=== PATIENT | female | born 1955 | race Caucasian/White ===

== ENCOUNTER → 2016-10-18 | Outpatient (CLI) | payer OTHER | LOC: MMPC 09:00 | DX: F31.31 Bipolar disorder, current episode depressed, mild (principal); J44.9 Chronic obstructive pulmonary disease, unspecified; E66.9 Obesity, unspecified; Z87.39 Personal history of other diseases of the musculoskeletal system and connective tissue; E11.9 Type 2 diabetes mellitus without complications; K58.9 Irritable bowel syndrome, unspecified | CPT/HCPCS: 99214; G0463 ==

== ENCOUNTER 2016-10-31 17:55 | Emergency (ER) | payer OTHER ==
[2016-10-31 19:06] VITALS: RESP 19; TEMP 96.7
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
== END 2016-10-31 20:16 | disposition home or self-care (01) ==
LOC: ER 17:55
DX: S29.012A Strain of muscle and tendon of back wall of thorax, initial encounter (principal); V43.62XA Car passenger injured in collision with other type car in traffic accident, initial encounter
CPT/HCPCS: 71250; 99282

== ENCOUNTER 2016-11-01 10:00 | Emergency (ER) | payer OTHER ==
[2016-11-01] MEDS ORDERED: NORMAL SALINE 10 ML SYRINGE FLUSH IVP PRN (11:05)
[2016-11-01] MEDS ORDERED: KETOROLAC 15 MG/1 ML VIAL IVP ONE (11:05)
[2016-11-01 11:17] VITALS: RESP 18; TEMP 97.4
[2016-11-01 11:22] LABS: BILIRUBIN,URINE NEGATIVE (NEG); CLARITY,URINE CLEAR (CLEAR); GLUCOSE, URINE (UA) NEGATIVE (NEG); LEUKOCYTE ESTERASE ,URINE NEGATIVE (NEG); NITRATE,URINE NEGATIVE (NEG); OCCULT BLOOD,URINE NEGATIVE (NEG); PROTEIN,URINE NEGATIVE (NEG); UROBILINOGEN,URINE 0.2 EU/dL (0.2)
[2016-11-01 11:27] LABS: URINE SAMPLE TYPE VOIDED SPECIMEN
[2016-11-01 11:31] LABS: BASOPHILS # (AUTO) 0.06 10*3/UL; BASOPHILS % (AUTO) 0.7 % (0-1); EOSINOPHILS % (AUTO) 1.9 % (0-8); HEMOGLOBIN 15.1 g/dL (12.0-16.0); IMM GRAN % (AUTO) 0.1 % (0-5); IMM GRAN# (AUTO) 0.01 10*3/UL; LYMPHOCYTES # (AUTO) 2.98 10*3/uL; MEAN CORPUSCULAR HEMOGLOBIN 29.9 PG (27-31); MEAN CORPUSCULAR HGB CONC 33.6 g/dL (33-37); MEAN PLATELET VOLUME 9.1 FL (7.4-12.2); MONOCYTES # (AUTO) 0.61 10*3/UL (0.3-0.8); MONOCYTES % (AUTO) 7.2 % (5-15); NEUTROPHILS % (AUTO) 55.1 % (50-80); RDW COEFFICIENT OF VARIATION 15.3 % (11.5-14.5); RED BLOOD COUNT 5.05 10^6/uL (4.20-5.40); WHITE BLOOD COUNT 8.52 10^3/uL (4.8-10.8)
[2016-11-01] MEDS ORDERED: Sodium Chloride 0.9% 1,000 ML PRIMARY IV ONE (11:31)
[2016-11-01 11:35] LABS: PLATELET MORPHOLOGY COMMENT NORMAL MORPHOLOGY (NORM)
[2016-11-01 11:51] LABS: ASPARTATE AMINO TRANSFERASE 29 IU/L (8-39); BILIRUBIN,TOTAL 0.6 mg/dL (0.3-1.2); BLOOD UREA NITROGEN 12 mg/dL (7-22); C-REACTIVE PROTEIN 1.1 mg/dL (0.0-0.9); CALCIUM 9.6 mg/dL (8.7-10.7); CHLORIDE 106 meq/L (98-112); CREATININE 0.6 mg/dL (0.50-1.20); EST GLOMERULAR FILTRATION > 60 (>60 ml/min/1.73m(2)); GLUCOSE 93 mg/dL (78-110); POTASSIUM 4.1 meq/L (3.8-5.2); SODIUM 141 meq/L (135-145); TOTAL PROTEIN 7.8 g/dL (6.1-8.0)
[2016-11-01] MEDS ORDERED: fentaNYL Inj 100 MCG/2 ML VIAL IVP ONE (12:18)
--- NOTE | 2016-11-01 12:35 | DI ---
CT ABDOMEN SCAN WITHOUT IV CONTRAST, 11/01/2016 11:38 AM : Clinical History: Right flank pain that radiates to the right groin. Previous Exam: None at this facility. Scans are performed from the lower lung bases through the liver and kidneys without IV contrast. Sagi ttal and coronal reformatted images are generated. The lung bases are clear. The liver is normal. The gallbladder is grossly normal. There is no abnorma lity of the spleen, pancreas, and adrenal glands. Both kidneys are normal in size, shape, position an d contour. There is no hydronephrosis or hydroureter. No renal or ureteral calculi are present. There is a calcification located in the anterior aspect of the upper pole the right kidney, but this is in a vessel. There are no abnormal retrocrural or periaortic nodes. No ascites is present. READING: Normal CT abdomen scan. There is no hydronephrosis or hydroureter or evidence of renal or ureteral ca lculi. CT PELVIS SCAN WITHOUT IV CONTRAST, 11/01/2016 11:38 AM : Clinical History: See above. Previous Exam: None. Scans are performed from the inferior margin of the liver and kidneys to the symphysis pubis without IV contrast. There is no free fluid collection and there is no adenopathy. The appendix is diminutive in size and in a retrocecal position but is normal. The small bowel, terminal ileum, and ileocecal valve are norm al. The colon is also normal. There are no hernias. The patient is status post hysterectomy and bilat eral salpingo-oophorectomy. READING: Normal CT pelvis scan.
--- NOTE | 2016-11-01 13:05 | DI ---
RIGHT ANKLE, 11/01/2016 12:29 PM: Clinical History: Right apical pain with swelling. Previous Exam: None at this facility. 3 views are submitted. There is soft tissue swelling over the lateral malleolus. There is no fracture or dislocation. Reading: No fracture noted.
[2016-11-01] MEDS ORDERED: Prochlorperazine Edisylate Inj 10mg/2ml vial IVP ONE (13:25)
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
[2016-11-01] MEDS ORDERED: Sodium Chloride 0.9% 1,000 ML ONE (17:50)
== END 2016-11-01 13:35 | disposition home or self-care (01) ==
LOC: ER 10:00
DX: M54.5 Low back pain (principal); M25.571 Pain in right ankle and joints of right foot; K58.0 Irritable bowel syndrome with diarrhea; M54.89 Other dorsalgia; E11.9 Type 2 diabetes mellitus without complications
CPT/HCPCS: 73610; 74176; 80053; 81003; 84550; 85025; 86140; 96374; 96375; 99283 ×2; J2360; J3010; J1885; J7030

== ENCOUNTER → 2016-11-16 | Outpatient (CLI) | payer OTHER | LOC: MMPC 09:00 | DX: L84 Corns and callosities (principal); Z12.31 Encounter for screening mammogram for malignant neoplasm of breast; J44.9 Chronic obstructive pulmonary disease, unspecified; F31.31 Bipolar disorder, current episode depressed, mild; E11.9 Type 2 diabetes mellitus without complications | CPT/HCPCS: 99213; G0463 ==

== ENCOUNTER 2016-12-15 13:43 | Emergency (ER) | payer OTHER ==
[2016-12-15] MEDS ORDERED: DIAZEPAM 10 MG/2 ML (5 MG/1 ML) CARPUJECT IM ONE (14:04)
[2016-12-15 14:41] VITALS: RESP 20; TEMP 97.8
--- NOTE | 2016-12-15 15:00 | DI ---
PA /LATERAL CHEST X-RAY, 12/15/2016 2:04 PM : Clinical History: Cough. Right scapular chest wall pain. Previous Exam: 08/19/2016. Comparison is also made with a CT scan of the chest from 08/19/2016 and 07/2017. There is no acute soft tissue or bony abnormality. Heart size is normal. There is no acute infiltrate or effusion. The right hilum is prominent but no adenopathy is identified on the CT scans of the est from 10/31/2016. That study did demonstrate pulmonary arterial hypertension without obvious underl chica chronic lung disease. There are no pulmonary nodules. Readin. There is no acute infiltrate or effusion. 2. The right hilum is prominent but the recent CT scan of the chest from 10/31/2016 did not show kalyn opathy. This may be secondary to pulmonary arterial hypertension and in the absence of obvious underl chica chronic lung disease, the pulmonary hypertension may be secondary to chronic hypoxia.
--- NOTE | 2016-12-15 16:54 | DI ---
LUMBAR SPINE SERIES, 12/15/2016 2:20 PM: Clinical History: Low back pain. Previous Exam: None at this facility. Upright AP and lateral views are submitted. The vertebral bodies are of normal height and size. There is mild L3-4 and L5-S1 disc space narrowing and severe narrowing at L4-5 with normal disc spaces at L1-2 and L2-3. Arthritic changes are present in the apophyseal joints at all levels but most pronounc ed between L4-5 and L5-S1 bilaterally. The pedicles and remaining posterior elements are unremarkable . Both SI joints are normal. 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 Readin. Chronic disc space narrowing from L3-4 through L5-S1 with degenerative arthritic changes most pro nounced bilaterally between L4-5 and L5-S1. 2. 

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
== END 2016-12-15 15:11 | disposition home or self-care (01) ==
LOC: ER 13:43
DX: M54.5 Low back pain (principal); J44.9 Chronic obstructive pulmonary disease, unspecified; M25.511 Pain in right shoulder; E11.9 Type 2 diabetes mellitus without complications
CPT/HCPCS: 71020; 72100; 96372; 99283; J3360

== ENCOUNTER → 2016-12-22 | Outpatient (CLI) | payer OTHER | LOC: MMPC 11:11 | DX: M89.8X1 Other specified disorders of bone, shoulder (principal); E11.9 Type 2 diabetes mellitus without complications; F31.31 Bipolar disorder, current episode depressed, mild; R73.9 Hyperglycemia, unspecified; L84 Corns and callosities; J44.9 Chronic obstructive pulmonary disease, unspecified; Z87.39 Personal history of other diseases of the musculoskeletal system and connective tissue | CPT/HCPCS: 99213; G0463 ==

== ENCOUNTER → 2017-02-23 | Outpatient (CLI) | payer OTHER ==
[2017-02-23 16:04] LABS: HEMOGLOBIN A1C 5.82 % (4.2-6.0)
[2017-02-23 16:05] LABS: CHOL/HDL RATIO 4.6 RATIO (0-4.0)
[2017-02-23 16:22] LABS: VITAMIN D 25-HYDROXY 24.2 NG/ML (30-100)
== END ==
LOC: MOB LAB 13:24
DX: E11.65 Type 2 diabetes mellitus with hyperglycemia (principal); M25.511 Pain in right shoulder; E55.9 Vitamin D deficiency, unspecified; J44.9 Chronic obstructive pulmonary disease, unspecified; L84 Corns and callosities; E66.9 Obesity, unspecified; F31.9 Bipolar disorder, unspecified; F17.200 Nicotine dependence, unspecified, uncomplicated
CPT/HCPCS: 36415; 80061; 82306; 83036; 84443

== ENCOUNTER 2018-08-07 19:41 | Observation (INO) ==
[2018-08-07] MEDS ORDERED: LORazepam 2 MG/1 ML VIAL IVP ONE (19:47)
[2018-08-07] MEDS ORDERED: methylPREDNISolone 125 MG/2 ML VIAL IVP ONE (19:50)
[2018-08-07 20:00] LABS: BASOPHILS # (AUTO) 0.07 10*3/UL; BASOPHILS % (AUTO) 0.7 % (0-1); EOSINOPHILS # (AUTO) 0.12 10*3/UL; EOSINOPHILS % (AUTO) 1.3 % (0-8); Hematocrit [HCT] 56.3 % (37.0-47.0); Hemoglobin [HGB] 18.6 g/dL (12.0-16.0); LYMPHOCYTES # (AUTO) 1.64 10*3/uL; MEAN CORPUSCULAR HEMOGLOBIN 30.2 PG (27-31); MEAN CORPUSCULAR VOLUME 91.4 FL (81-99); MEAN PLATELET VOLUME 10.8 FL (7.4-12.2); MONOCYTES # (AUTO) 1.14 10*3/UL (0.3-0.8); NEUTROPHILS # (AUTO) 6.48 10*3/UL; NEUTROPHILS % (AUTO) 68.3 % (50-80); RED BLOOD COUNT 6.16 10^6/uL (4.20-5.40)
--- NOTE | 2018-08-07 20:06 | DI ---
AP CHEST X-RAY, 08/07/2018 7:47 PM : Clinical History: Dyspnea. Previous Exam: 07/12/2018. Soft Tissues: No acute soft tissue abnormality. Bones: Normal. Heart: There is cardiomegaly with CHF. Lungs: No infiltrate or effusion. Mediastinum: Pulmonary arterial hypertension. Nodules: No pulmonary nodules. Reading: Cardiomegaly with CHF.
[2018-08-07 20:23] LABS: VENOUS PH 7.34 (7.32-7.42)
[2018-08-07 20:40] LABS: BLOOD UREA NITROGEN 16 mg/dL (7-22); BUN/CREATININE RATIO 26.66 (6-20)
[2018-08-07 20:48] LABS: PLATELET MORPHOLOGY COMMENT NORMAL MORPHOLOGY (NORM); RBC MORPHOLOGY COMMENT NORMAL MORPHOLOGY (NORM); WBC MORPHOLOGY COMMENT NORMAL MORPHOLOGY (NORM)
[2018-08-07] MEDS ORDERED: FUROSEMIDE 10 MG/1 ML - 2 ML VIAL IVP ONE (21:14)
[2018-08-07] MEDS ORDERED: IPRATROPIUM/ALBUTEROL SULFATE 3 ML NEB NEB ONE ×2 (21:14→21:21)
[2018-08-07 21:48] LABS: BILIRUBIN,URINE NEGATIVE (NEG); CLARITY,URINE CLEAR (CLEAR); COLOR,URINE YELLOW (Y); GLUCOSE, URINE (UA) NEGATIVE (NEG); OCCULT BLOOD,URINE SMALL (NEG); PH,URINE 5.5 (5.0-8.5); PROTEIN,URINE >300 mg/dl (NEG); UROBILINOGEN,URINE 0.2 EU/dL (0.2)
[2018-08-07 21:53] LABS: SQUAMOUS EPITHELIAL CELL,UR FEW; URINE CASTS FEW; URINE SAMPLE TYPE CLEAN CATCH URINE; URINE SPECIFIC GRAVITY - MAN 1.017
[2018-08-07] MEDS ORDERED: Magnesium Sulfate 2gm (Premix) 2 GM/50 ML BAG IV ONE (21:53)
[2018-08-07] MEDS ORDERED: cefTRIAXone Inj 2 GM in Sodium Chloride 0.9% 100 ML IV ONE (22:24)
--- NOTE | 2018-08-07 23:18 | DI ---
EXAM: CT Angiography Chest Without And With Intravenous Contrast CLINICAL HISTORY: ITS.REASON hypoxia, elevated D-dimer Physician Notes: Tech Comments: TECHNIQUE: Axial computed tomographic angiography images of the chest without and with intravenous contrast using pulmonary embolism protocol. 3D reconstructed images were created and reviewed. COMPARISON: 07/12/18 FINDINGS: Pulmonary arteries: Unremarkable. No pulmonary embolism. Aorta: No acute findings. No thoracic aortic aneurysm. Lungs: Emphysema. No mass. Pleural space: Unremarkable. No significant effusion. No pneumothorax. Heart: Small pericardial effusion again seen. No evidence of RV dysfunction. Bones/joints: No acute fracture. No dislocation. Soft tissues: Unremarkable. Lymph nodes: Mediastinal and right hilar adenopathy again seen. IMPRESSION: No acute findings.
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
--- NOTE | 2018-08-07 23:59 | PDOC ---
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 In addition she has COPD, and diabetes mellitus type II. She comes in stating today that she's been short of breath. She is very elusive in terms of answering questions, and initially states "I wrote it all down on the parts". I told her that I really needed her to answer questions. She finally did cooperate. She states that she's been short of breath for days, weeks, months, and years. She states it's been worse over the last few days. She came into the emergency room and some sort of friend brought her in for evaluation. She really did not answer as to whether she was having fever or cough. In the emergency room, she got breathing treatments, Zithromax, and Solu-Medrol and she states that those medications helped her feel better. She denies chest pain. She states to me that she is DO NOT RESUSCITATE. Exa cerbating factors were very difficult to obtain due to her psychiatric condition and her unwillingness to answer all questions. Notably, the patient continues to smoke although she would not tell me how much. Past Medical History Medical History: 1. COPD , has been on oxygen. 2 L per nasal cannula at home. 2. Bipolar disorder. 3. Anxiety. 4. Hx of laryngeal dysfunction. 5. Tobacco abuse. 6. Diabetes mellitus type II Surgical History: 1. Exploratory laryngeal surgery few years back Family History: Reviewed an Not Pertinent Pertinent Family History: She denies any family history of lung problems Past Social History: Smokes daily. Did not tell me whether or not she drinks alcohol. She is on some sort of state program with bottle caser due to her psychiatric disorders. She states she has children and describes them as healthy. Tobacco Use: Current Every Day Smoker In the Past 12 Months, Have Used or Abuse Any of the Following Substance: None Alcohol Use: Other (The patient would not tell me) Medication / Allergies Home Medications: Home Medications Medication Instructions Recorded Confirmed Type Albuterol Sulfate [Ventolin Hfa] 1 - 2 puff INH Q4-6H PRN #1 puff 10/19/16 08/07/18 History Blood Sugar Diagnostic [Blood 1 strip MC QD #50 strip 10/20/16 08/07/18 Rx Glucose Test Strip] Blood-Glucose Meter [Blood Glucose 1 ea MC ONCE #1 ea 10/20/16 08/07/18 Rx Meter] dicyclomine 10 mg capsule 10 mg PO Q6H PRN #120 cap 10/19/17 08/07/18 Rx mirtazapine 30 mg disintegrating See Rx Instructions PO QDAY tab 03/30/18 08/07/18 History tablet fluticasone 200 mcg-vilanterol 25 1 inh INH QDAY PRN #28 ea 07/04/18 08/07/18 Rx mcg/dose powder for inhalation Gabapentin 100 mg PO DAILY 07/12/18 08/07/18 History aripiprazole 2 mg tablet 4 mg PO QDAY #60 tab 08/03/18 08/07/18 Rx hydrochlorothiazide 25 mg tablet 25 mg PO QDAY #60 tab 08/03/18 08/07/18 Rx Allergies/Adverse Reactions: Allergies Allergy/AdvReac Type Severity Reaction Status Date / Time codeine Allergy Anaphylaxis Verified 08/07/18 20:14 morphine Allergy HIVES Verified 08/07/18 20:14 Review of Systems - Review of Systems ROS Unobtainable: Due to Mental Status (Patient has bipolar disorder and pro bably underlying psychiatric disorder otherwise. (Schizophrenia?) She would not answer all questions. Her respiratory review systems is as per history of present illness. She denies chest pain. She denied nausea or vomiting. She complains of some low back pain and thoracic pain that came on fairly suddenly with this exacerbation.) Exam - Vitals Vital Signs: Vital Signs Pulse Rate 118 Respiratory Rate 22 Pulse Ox 95 Vital Signs - Last Taken Pulse Rate 118 H 08/07/18 21:19 Respiratory Rate 22 08/07/18 21:19 Pulse Ox 95 08/07/18 21:19 She is currently afebrile at bedside. - General General Appearance: No Acute Distress Additional General Exam Details: Somewhat uncooperative with history although she did let me examine her. - Head Head Exam: Normal Inspection, Normocephalic, Atraumatic - Eye Eye Exam: POSITIVE: No Scleral Icterus - ENT ENT Exam: POSITIVE: Mucous Membranes Dry - Neck Neck Exam: Normal Inspection - Respiratory Respiratory Exam: POSITIVE: Clear to Auscultation - Bilaterally, Breathing Non Labored, Normal to Percussion and Palpation Additional Respiratory Exam Details: She's had some breathing treatments in the emergency room so she could've been wheezing there. - Cardiovascular Cardiovascular Exam: POSITIVE: RRR, No Murmur, No Clicks, No Gallops, No Rubs, No JVD - GI/Abdominal GI/Abdominal Exam: POSITIVE: Normal Bowel Sounds, Non Tender, Non Distended, Soft - Rectal Rectal Exam: POSITIVE: Deferred - External Exam: POSITIVE: Deferred Exam: POSITIVE: Deferred - Extremities Extremities Exam: POSITIVE: No Edema Present, No Cyanosis Present, Clubbing Present Additional Extremities Exam Details: Palmar erythema noted - Back Back Exam: POSITIVE: No CVA Tenderness - Neurological Neurological Exam: POSITIVE: Alert, Oriented x 3, No Facial Droop, Speech Intact / Clear, Moves All Extremities Equally - Psychiatric Psychiatric Exam: POSITIVE: Anxious, Agitated Results - Labs CBC and BMP: 08/07/18 19:45 08/07/18 19:45 Additional Lab Results: Laboratory Results 08/07/18 08/07/18 08/07/18 19:45 19:45 19:45 WBC 9.49 RBC 6.16 H Hgb 18.6 H Hct 56.3 H MCV 91.4 MCH 30.2 MCHC 33.0 RDW Std Deviation 49.1 RDW Coeff of Pratik 14.9 H Plt Count 183 MPV 10.8 Immature Gran % (Auto) 0.4 Neut % (Auto) 68.3 Lymph % (Auto) 17.3 [place] % (Auto) 12.0 Eos % (Auto) 1.3 Baso % (Auto) 0.7 Immature Gran # (Auto) 0.04 Neut # (Auto) 6.48 Lymph # (Auto) 1.64 [place] # (Auto) 1.14 H Eos # (Auto) 0.12 Baso # (Auto) 0.07 WBC Morphology Comment Normal morphology Plt Morphology Comment Normal morphology RBC Morph Comment Normal morphology D-Dimer VBG pH VBG pCO2 VBG HCO3 VBG Base Excess Sodium Potassium Chloride Carbon Dioxide Anion Gap BUN Creatinine Estimated GFR BUN/Creatinine Ratio Glucose Calculated Osmolality Calcium Magnesium 1.5 L Total Bilirubin AST ALT Alkaline Phosphatase Troponin I 0.032 C-Reactive Protein 4.2 H NT-Pro-B Natriuret Pep 4310 H Total Protein Albumin Globulin Albumin/Globulin Ratio Ur Collection Type Urine Color Urine Clarity Urine pH Ur Specific [place] U Specif Grav (Refrac) Urine Protein Urine Glucose (UA) Urine Ketones Urine Occult Blood Urine Nitrate Urine Bilirubin Urine Urobilinogen Ur Leukocyte Esterase Urine RBC Urine WBC Ur Squamous Epith Cells Ur Renal Epithelial Cell Urine Crystals Urine Bacteria Urine Casts Urine Mucus Urine Trichomonas Urine Yeast Ur Culture Indicated? Serum Alcohol < 10 08/07/18 08/07/18 08/07/18 19:45 19:45 20:12 WBC RBC Hgb Hct MCV MCH MCHC RDW Std Deviation RDW Coeff of Pratik Plt Count MPV Immature Gran % (Auto) Neut % (Auto) Lymph % (Auto) [place] % (Auto) Eos % (Auto) Baso % (Auto) Immature Gran # (Auto) Neut # (Auto) Lymph # (Auto) [place] # (Auto) Eos # (Auto) Baso # (Auto) WBC Morphology Comment Plt Morphology Comment RBC Morph Comment D-Dimer 1.00 H VBG pH 7.34 VBG pCO2 58 H VBG HCO3 32 H VBG Base Excess 6 H Sodium 140 Potassium 4.3 Chloride 102 Carbon Dioxide 31 Anion Gap 7 BUN 16 Creatinine 0.6 Estimated GFR > 60 BUN/Creatinine Ratio 26.66 H Glucose 135 H Calculated Osmolality 292.0 Calcium 9.3 Magnesium Total Bilirubin 1.0 AST 59 H ALT 14 Alkaline Phosphatase 115 Troponin I C-Reactive Protein NT-Pro-B Natriuret Pep Total Protein 7.0 Albumin 4.0 Globulin 2.9 Albumin/Globulin Ratio 1.30 Ur Collection Type Urine Color Urine Clarity Urine pH Ur Specific [place] U Specif Grav (Refrac) Urine Protein Urine Glucose (UA) Urine Ketones Urine Occult Blood Urine Nitrate Urine Bilirubin Urine Urobilinogen Ur Leukocyte Esterase Urine RBC Urine WBC Ur Squamous Epith Cells Ur Renal Epithelial Cell Urine Crystals Urine Bacteria Urine Casts Urine Mucus Urine Trichomonas Urine Yeast Ur Culture Indicated? Serum Alcohol 08/07/18 21:42 WBC RBC Hgb Hct MCV MCH MCHC RDW Std Deviation RDW Coeff of Pratik Plt Count MPV Immature Gran % (Auto) Neut % (Auto) Lymph % (Auto) [place] % (Auto) Eos % (Auto) Baso % (Auto) Immature Gran # (Auto) Neut # (Auto) Lymph # (Auto) [place] # (Auto) Eos # (Auto) Baso # (Auto) WBC Morphology Comment Plt Morphology Comment RBC Morph Comment D-Dimer VBG pH VBG pCO2 VBG HCO3 VBG Base Excess Sodium Potassium Chloride Carbon Dioxide Anion Gap BUN Creatinine Estimated GFR BUN/Creatinine Ratio Glucose Calculated Osmolality Calcium Magnesium Total Bilirubin AST ALT Alkaline Phosphatase Troponin I C-Reactive Protein NT-Pro-B Natriuret Pep Total Protein Albumin Globulin Albumin/Globulin Ratio Ur Collection Type Clean catch urine Urine Color Yellow Urine Clarity Clear Urine pH 5.5 Ur Specific [place] >=1.030 U Specif Grav (Refrac) 1.017 Urine Protein >300 A Urine Glucose (UA) Negative Urine Ketones Negative Urine Occult Blood Small H Urine Nitrate Negative Urine Bilirubin Negative Urine Urobilinogen 0.2 Ur Leukocyte Esterase Negative Urine RBC 1-3 Urine WBC None Ur Squamous Epith Cells Few Ur Renal Epithelial Cell None Urine Crystals None Urine Bacteria None Urine Casts Few Urine Mucus Rare Urine Trichomonas None Urine Yeast None Ur Culture Indicated? Culture not set Serum Alcohol - Imaging Status: Image Reviewed by Me (chest x-ray might show increased vascular congestion on my view, but no pneumonias. I do not see any pneumonia on chest CT scan. Radiolgy felt the CT of the chest is negative for pulmonary embolism.) Assessment and Plan - Patient Problems (1) COPD (chronic obstructive pulmonary disease) Current Visit: Yes Status: Acute Code(s): J44.9 - Chronic obstructive pulmonary disease, unspecified Qualifiers: COPD type: COPD with acute exacerbation Qualified Code(s): J44.1 - Chronic obstructive pulmonary disease with (acute) exacerbation (2) Bipolar disease, chronic Current Visit: Yes Status: Chronic Code(s): F31.9 - Bipolar disorder, unspecified (3) Diabetes mellitus Current Visit: Yes Status: Acute Code(s): E11.9 - Type 2 diabetes mellitus without complications Qualifiers: Diabetes mellitus type: type 2 Diabetes mellitus prison insulin use: without prison use Diabetes mellitus complication status: without complication Qualified Code(s): E11.9 - Type 2 diabetes mellitus without complications (4) IBS (irritable bowel syndrome) Current Visit: Yes Status: Chronic Code(s): K58.9 - Irritable bowel syndrome without diarrhea Qualifiers: Irritable bowel syndrome type: unspecified Qualified Code(s): K58.9 - Irr itable bowel syndrome without diarrhea - Assessment / Plan Additional Assessment/Plan Details: admit observation patient would benefit from LAMA-LABA therapy, but will use nebulized Duonebs and albuterol in hospital hold inhaled corticosteroids assess pneumovax and influenza vaccine status--she states she would like both prednisone, 40 mg daily for 5 days zithromax, 500 mg PO on day one, then 250 mg daily oxygen to maintain oxygen saturations at 91% If CO2 retention, will consider BiPaP use if indicated clinically code status is DNR check CBC with diff in AM if between May and end october, check for influenza if there is no improvement in patient condition, consider possibility of PE which in this case, ruled out by CTA of chest, non-coronary, done this evening and emergency room smoking cessation education. DVT prophylaxis chemical and mechanical I discussed the above plan with the patient and she agreed to therapy. He is very keen on getting out of the hospital as soon as possible and I told her that I would try to get her out of the can get her oxygen level down a bit by tomorrow if possible. That may work best with her underlying psychiatric disorder and dislike for the hospital. In fact, initially, she threatened to evelina everyone.
[2018-08-08] MEDS ORDERED: LIDOCAINE W/ SODIUM BICARB 0.5 ML SYR SUBD PRN (00:08)
[2018-08-08] MEDS ORDERED: Influenza 18-19 Vaccine (6mo+) 60 MCG/0.5 ML SYRINGE IM ONE (00:24)
[2018-08-08] MEDS ORDERED: Pneumococcal Vacc 13 Syringe 0.5 ML DISP.SYRIN IM ONE (00:24)
[2018-08-08] MEDS: ALBUTEROL SULFATE 2.5 MG/3 ML NEB PRN ×2 (00:26→23:12)
[2018-08-08 05:00] LABS: BASOPHILS # (AUTO) 0.04 10*3/UL; BASOPHILS % (AUTO) 0.7 % (0-1); EOSINOPHILS # (AUTO) 0 10*3/UL; EOSINOPHILS % (AUTO) 0 % (0-8); Hemoglobin [HGB] 16.5 g/dL (12.0-16.0); LYMPHOCYTES # (AUTO) 0.58 10*3/uL; MEAN CORPUSCULAR HEMOGLOBIN 30.3 PG (27-31); MEAN CORPUSCULAR HGB CONC 32.4 g/dL (33-37); MEAN CORPUSCULAR VOLUME 93.8 FL (81-99); MEAN PLATELET VOLUME 10.6 FL (7.4-12.2); MONOCYTES # (AUTO) 0.15 10*3/UL (0.3-0.8); MONOCYTES % (AUTO) 2.8 % (5-15); NEUTROPHILS # (AUTO) 4.56 10*3/UL; RED BLOOD COUNT 5.44 10^6/uL (4.20-5.40)
[2018-08-08 05:24] LABS: BLOOD UREA NITROGEN 17 mg/dL (7-22); BUN/CREATININE RATIO 28.33 (6-20)
--- NOTE | 2018-08-08 05:27 | EKG ---
[address] [place] [address] Measurements Intervals [place] Rate: 124 P: 63 AK: 128 QRS: 136 QRSD: 97 T: 42 QT: 271 QTc: 345 Interpretive Statements SINUS TACHYCARDIA RIGHT AXIS DEVIATION WITH PROBABLE RIGHT VENTRICULAR HYPERTROPHY SLOW R WAVE PROGRESSION V1-V5 PULMONARY DISEASE PATTERN Compared to ECG 07/12/2018 09:38:17 Sinus rhythm no longer present Electronically Signed On 08-08-18 08:33:55 MST by Dutch Camacho [email or web address]
[2018-08-08 05:42] LABS: PLATELET MORPHOLOGY COMMENT NORMAL MORPHOLOGY (NORM); RBC MORPHOLOGY COMMENT NORMAL MORPHOLOGY (NORM); WBC MORPHOLOGY COMMENT NORMAL MORPHOLOGY (NORM)
[2018-08-08 06:12] LABS: VENOUS PH 7.32 (7.32-7.42)
[2018-08-08] MEDS: IPRATROPIUM/ALBUTEROL SULFATE 3 ML NEB NEB SCH ×4 (06:56→19:08)
[2018-08-08] MEDS ORDERED: GABAPENTIN 100 MG CAPSULE PO SCH (09:00)
[2018-08-08] MEDS ORDERED: predniSONE Tab 20 MG TAB PO ONE (09:30)
[2018-08-08] MEDS ORDERED: AZITHROMYCIN 250 MG TABLET PO ONE (09:30)
[2018-08-08] MEDS: ENOXAPARIN SODIUM 40 MG/0.4 ML SYRINGE SUBCUT SCH (09:49)
[2018-08-08] MEDS: Mirtazapine Tab 30 MG TAB PO SCH (09:50)
[2018-08-08] MEDS: HYDROCHLOROTHIAZIDE 25 MG TABLET PO SCH (09:50)
[2018-08-08] MEDS: predniSONE Tab 20 MG TAB PO SCH (09:50)
--- NOTE | 2018-08-08 10:22 | DCSUMMARY ---
Hospitalization Summary Admit Date: 08/07/2018 Discharge Date: 08/08/18 Primary Diagnosis:: COPD exacerbation Hospital Course: This is a 63-year-old female with severely debilitating psychiatric issue such as bipolar disorder and probable schizophrenia Exam - Vitals Vital Signs: Vital Signs Temperature 98.6 F Temperature Source Temporal Artery Scan Pulse Rate [Pulse Oximeter] 133 Pulse Rate 88 Respiratory Rate 25 Blood Pressure [Left Arm] 134/90 Pulse Ox 88 Oxygen Flow Rate 4 Oxygen Delivery Method Oxymask Height 5 ft 4 in Weight 125 lb Patient Problems - Patient Problem List (1) COPD (chronic obstructive pulmonary disease) Current Visit: Yes Status: Acute Code(s): J44.9 - Chronic obstructive pulmonary disease, unspecified Qualifiers: COPD type: COPD with acute exacerbation Qualified Code(s): J44.1 - Chronic obstructive pulmonary disease with (acute) exacerbation Category: Medical (2) Bipolar disease, chronic Current Visit: Yes Status: Chronic Code(s): F31.9 - Bipolar disorder, unspecified Category: Medical (3) Diabetes mellitus Current Visit: Yes Status: Acute Comment: Her diet has been able to control her type 2 diabetes fairly well which is another contradiction to any assumption of risk to self. I will send in the paperwork for her shoes from [facility] but I fear she will not have funds to cover this. 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
--- NOTE | 2018-08-08 12:26 | PDOC(PROG) ---
Date of Service: 08/08/18 Time of Service: 12:21 Interval History: patient seen and evaluated earlier. Patient mixed up as to whether she wants to stay here or go home. breathing is okay. She spoke with Dr. Woodard and now wants to stay here. No chest pain. She wants her oxygen. Objective : Data - Labs CBC and BMP: 08/08/18 04:50 08/08/18 04:50 Additional Lab Results: 08/08/18 04:55 VBG pH 7.32 VBG pCO2 58 H VBG HCO3 30 H VBG Base Excess 4 H Objective : Exam - General General Appearance: No Acute Distress Additional General Exam Details: Vital Signs - Last Taken Temperature 98.7 F 08/08/18 11:16 Pulse Rate 127 H 08/08/18 11:16 Respiratory Rate 22 08/08/18 11:16 Blood Pressure 151/115 08/08/18 11:16 Pulse Ox 88 08/08/18 11:16 - Eye Eye Exam: No Scleral Icterus - ENT ENT Exam: Mucous Membranes Moist - Neck Neck Exam: JVP is not Raised - Respiratory Respiratory Exam: Clear to Auscultation - Bilaterally, Breathing Non Labored - Cardiovascular Cardiovascular Exam: No Murmur, No Clicks, No Gallops, No Rubs, Tachycardia, No JVD - GI/Abdominal GI/Abdominal Exam: Normal Bowel Sounds, Non Tender, Non Distended, Soft - Extremities Extremities Exam: No Edema Present, No Cyanosis Present, Clubbing Present - Neurological Neurological Exam: Alert, No Facial Droop, Speech Intact / Clear, Moves All Extremities Equally Additional Neurological Exam Details: She has denied schizophrenia side think she is allergic to person but not necessarily to time or situation. - Psychiatric Psychiatric Exam: Anxious, Agitated Assessment and Plan - Patient Problems (1) COPD (chronic obstructive pulmonary disease) Current Visit: Yes Status: Acute Code(s): J44.9 - Chronic obstructive pulmonary disease, unspecified Qualifiers: COPD type: COPD with acute exacerbation Qualified Code(s): J44.1 - Chronic obstructive pulmonary disease with (acute) exacerbation (2) Hypertension Current Visit: Yes Status: Acute Code(s): I10 - Essential (primary) hypertension Qualifiers: Hypertension type: essential hypertension Qualified Code(s): I10 - Essential (primary) hypertension (3) Bipolar disease, chronic Current Visit: Yes Status: Chronic Code(s): F31.9 - Bipolar disorder, unspecified (4) Diabetes mellitus Current Visit: Yes Status: Acute Code(s): E11.9 - Type 2 diabetes mellitus without complications Qualifiers: Diabetes mellitus type: type 2 Diabetes mellitus mcfp insulin use: without mcfp use Diabetes mellitus complication status: without complication Qualified Code(s): E11.9 - Type 2 diabetes mellitus without complications (5) IBS (irritable bowel syndrome) Current Visit: Yes Status: Chronic Code(s): K58.9 - Irritable bowel syndrome without diarrhea Qualifiers: Irritable bowel syndrome type: unspecified Qualified Code(s): K58.9 - Irritable bowel syndrome without diarrhea - Assessment / Plan Additional Assessment/Plan Details: We were able to get Zithromax and prednisone for the patient for her 5 day course. I think she could potentially go home from the standpoint, but she is very resistant now to that and this concern and discussion with Dr. Woodard that her blood pressure has been elevated as well. She likely has right-sided congestive heart failure with her elevated brain natruretic peptide. Continue hydrochlorothiazide. Breathing therapies. Prednisone and Zithromax. This does appear to be a viral etiology however. Zithromax may help with the decrease of inflammation in the lungs as well. Try to maintain the hospital stay, but this may be influenced largely by the patient's paranoia with her underlying severe bipolar disorder and probable schizophrenia.
[2018-08-08] MEDS: ARIPIPRAZOLE PO SCH (12:28)
[2018-08-08] MEDS ORDERED: ACETAMINOPHEN 325 MG TABLET PO PRN (17:42)
[2018-08-08] MEDS: GABAPENTIN 100 MG CAPSULE PO SCH (20:21)
[2018-08-08] MEDS ORDERED: METHYLPREDNISOLONE SUCC IV ONE (23:32)
[2018-08-08] MEDS ORDERED: SODIUM CHLORIDE 0.9% IV ONE (23:32)
[2018-08-08] MEDS ORDERED: methylPREDNISolone 125 MG/2 ML VIAL IVP ONE (23:45)
[2018-08-09] MEDS: DICYCLOMINE 20 MG TABLET PO PRN ×4 (04:07→23:57)
[2018-08-09] MEDS: ALBUTEROL SULFATE 2.5 MG/3 ML NEB PRN ×2 (04:20→23:32)
[2018-08-09] MEDS: IPRATROPIUM/ALBUTEROL SULFATE 3 ML NEB NEB SCH ×4 (06:48→18:43)
[2018-08-09] MEDS: GABAPENTIN 100 MG CAPSULE PO SCH ×3 (07:36→18:34)
[2018-08-09] MEDS ORDERED: AZITHROMYCIN 250 MG TABLET PO SCH (09:00)
[2018-08-09] MEDS: predniSONE Tab 20 MG TAB PO SCH (09:05)
[2018-08-09] MEDS: Mirtazapine Tab 30 MG TAB PO SCH (09:05)
[2018-08-09] MEDS: HYDROCHLOROTHIAZIDE 25 MG TABLET PO SCH (09:05)
[2018-08-09] MEDS: ENOXAPARIN SODIUM 40 MG/0.4 ML SYRINGE SUBCUT SCH (09:05)
[2018-08-09] MEDS: ARIPIPRAZOLE PO SCH (09:06)
--- NOTE | 2018-08-09 09:39 | PDOC(PROG) ---
Date of Service: 08/09/18 Time of Service: 09:45 Interval History: Subjective Patient feels somewhat better today compared to yesterday, she still though short of breath. She said she's been using oxygen the last month maybe 2-4 L. Before that she sometimes she would take herself off the oxygen. In addition to the shortness of breath she has cough. Objective : Data - Labs CBC and BMP: 08/08/18 04:50 08/08/18 04:50 Objective : Exam - General General Appearance: No Acute Distress, Cooperative - Head Head Exam: Normal Inspection - Eye Eye Exam: Normal Appearance - ENT ENT Exam: Normal Exam - Neck Neck Exam: Normal Inspection - Respiratory Additional Respiratory Exam Details: Decreased air entry otherwise clear - Cardiovascular Cardiovascular Exam: RRR - GI/Abdominal GI/Abdominal Exam: Normal Bowel Sounds, Non Tender, Non Distended, Soft, No Organomegaly - Rectal Rectal Exam: Deferred - External Exam: Deferred Exam: Deferred - Extremities Extremities Exam: Normal Inspection - Back Back Exam: Normal Inspection - Neurological Neurological Exam: Alert, Oriented x 3, CN II-XII Intact, No Facial Droop, Speech Intact / Clear, Moves All Extremities Equally - Psychiatric Psychiatric Exam: Normal Affect Assessment and Plan - Patient Problems (1) Bipolar disease, chronic Current Visit: Yes Status: Chronic Comment: Continue previous medication Code(s): F31.9 - Bipolar disorder, unspecified (2) IBS (irritable bowel syndrome) Current Visit: Yes Status: Chronic Comment: Same med Code(s): K58.9 - Irritable bowel syndrome without diarrhea Qualifiers: Irritable bowel syndrome type: unspecified Qualified Code(s): K58.9 - Irritable bowel syndrome without diarrhea (3) COPD (chronic obstructive pulmonary disease) Current Visit: Yes Status: Acute Comment: Continue steroid, antibiotics. She feels weak so will ask physical therapy to work with her. Code(s): J44.9 - Chronic obstructive pulmonary disease, unspecified Qualifiers: COPD type: COPD with acute exacerbation Qualified Code(s): J44.1 - Chronic obstructive pulmonary disease with (acute) exacerbation (4) Hypertension Current Visit: Yes Status: Acute Comment: She is on hydrochlorothiazide continue Code(s): I10 - Essential (primary) hypertension Qualifiers: Hypertension type: essential hypertension Qualified Code(s): I10 - Essential (primary) hypertension
--- NOTE | 2018-08-09 11:44 | PTI REPORT ---
Thank you for the referral of Umm Harris. She was seen on 08/09/18 for an inpatient evaluation secondary to shortness of breath. SUBJECTIVE: The patient is a 63-year-old female who was admitted on the evening of 08/07/2018 due to shortness of breath and breathing issues. WE did receive orders to help her with her overall transfers and mobility today. She is well known to us secondary to many pain and other social issues within the community. The patient lives alone in an apartment here in [place]. She has a long history of mental illness and other social struggles. She seems to have a fairly good support system here in the community and Dr. Woodard has helped her a great deal with her medications and other social issues. The therapist strongly urged the patient to get to the hospital on Tuesday because she was having troubles reaching oxygen saturation in the 70s or 80s with use of oxygen at high rates. She was hospitalized. Obviously the medical care she has received in the hospital since that time has done her a huge service and has improved her symptoms dramatically. PAST MEDICAL HISTORY: Past medical history can be found in the patient's medical record. OBJECTIVE FINDINGS: General observations: The patient was alert and oriented as well as she gets. She is at baseline in that situation. Her biggest problem is managing her oxygen tubing and her oxygen apparatus. Ambulation: The patient is ambulating well. Balance: The patient's balance is good. Her Byrne score is 42 and she is a LOW risk for falling at home. ASSESSMENT: Problem List: Decreased oxygen saturation Back pain Short-Term Goals: To be met by discharge from inpatient: Patient will be able to transfer from bed to stand independently. Patient will be able to ambulate community distances safely and independently. Long-Term Goals: To be met following discharge from inpatient: Patient will be able to return home, safe and independent in all activities of daily living. TREATMENT PLAN: Patient will be seen B.I.D during the week and one time per day over the weekend as an inpatient for transfers, light strengthening, and mobilization so that she can be as successful upon discharge as possible. INITIAL TREATMENT: Treatment today consisted of the initial evaluation activities. We saw her for her complaints of mid back pain due to coughing and moving. We saw her for some modalities, mobilization, and light exercise. ALEXA
--- NOTE | 2018-08-09 16:11 | PT.PROG ---
Progress Note Progress Note: S. Patient stated that she would go to the therapy gym, she was very concerned with her oxygen. O. Patient ambulated to the therapy gym with OT then performed nu-step x 6 minutes, and performed supine heel slides, short arc quads, seated long arc quads, all x 10, sit to stands x 5 and then ambulated 175 feet back to her room where she was left with alarm and call light. A. Patient tolerated therapy fair, she was able to perform all exercises with no increase in pain or problems, however she did not want to do more exercises this afternoon. She is able to ambulate with Stand by guard assist. P. Continue POC.
[2018-08-09 16:17] LABS: VENOUS PH 7.33 (7.32-7.42)
--- NOTE | 2018-08-09 16:21 | OT.PROG ---
Progress Note Progress Note: S: pt stated she did not need a gait belt. She reported that her oxygen is at 93 to begin it will stay that way even though she takes oxygen off. She complained of discomfort in back. O: pt was seen in her room and had no difficulty completing bed mobility. She completed transfer entire way to therapy with no breaks and remained CGA with gait belt. She completed x15 on 2# box and x10 sit to stands. She completed transfer back to her room after OT/PT. A: pt participated and although did not want to use gait belt, she does have loss of balance and reaches for objects to hang on to. o2 remained in 90's on 8 liters. P: continue per pOC
[2018-08-09] MEDS ORDERED: GABAPENTIN 100 MG CAPSULE PO PRN (18:36)
[2018-08-09] MEDS ORDERED: ARIPIPRAZOLE 2 MG PO SCH ×2 (21:00)
[2018-08-10] MEDS: IPRATROPIUM/ALBUTEROL SULFATE 3 ML NEB NEB SCH (06:31)
[2018-08-10] MEDS: DICYCLOMINE 20 MG TABLET PO PRN (06:44)
--- NOTE | 2018-08-10 08:03 | DCSUMMARY ---
Hospitalization Summary Admit Date: 08/07/2018 Discharge Date: 08/10/18 Hospital Course: Discharge diagnosis 1. COPD 2. Para influenza infection 3. Bipolar disorder 4. History of anxiety 5. History of laryngeal dysfunction 6. Hypertension 7. Hypercapnic Chronic respiratory failure Hospital course This is a 63 years old female with medical history significant for history of severe bipolar disorder, COPD and hypertension. She came into the hospital because of shortness of breath and cough. Patient was admitted into the hospital by Dr. Gilliam please see his note. Her evaluation is hindered by her underlying mental illness. Patient was put on prednisone and Zithromax. In addition to breathing treatment. We continued with the rest of her psych medications. Initially Dr. Gilliam was thinking of discharging her the next day however she was resistant to going home. Patient stayed in the hospital. I saw her the next day she was making improvement. She was more cooperative with me at first. She was complaining from chronic pain issues with her back pain for which she is on gabapentin. We put her also on Tylenol. We did ask for PT evaluation and she's been seeing them before. On the day of discharge she seemed to be at her baseline. She has a baseline chronic respiratory failure with hypercapnia. Although the CO2 level went higher than initially when she came in but the pH remained stable. She also clinically she seemed to be stable. Exam remarkable for decreased air entry. No significant wheezing. We thought that she could be discharged home and finish her course as an outpatient. She'll be discharged on tapering dose of steroids and a few days of Zithromax. Discharge instruction Diet regular Activity as tolerated Medications Current Medication(s) Medication Instructions Recorded Confirmed Type Albuterol Sulfate [Ventolin Hfa] 1 - 2 puff INH Q4-6H PRN #1 puff 10/19/16 08/07/18 History Blood Sugar Diagnostic [Blood 1 strip QD #50 strip 10/20/16 08/07/18 Rx Glucose Test Strip] Blood-Glucose Meter [Blood Glucose 1 ea ONCE #1 ea 10/20/16 08/07/18 Rx Meter] dicyclomine 10 mg capsule 10 mg PO Q6H PRN #120 cap 10/19/17 08/07/18 Rx mirtazapine 30 mg disintegrating See Rx Instructions PO QDAY tab 03/30/18 08/07/18 History tablet fluticasone 200 mcg-vilanterol 25 1 inh INH QDAY PRN #28 ea 07/04/18 08/07/18 Rx mcg/dose powder for inhalation Gabapentin 100 mg PO DAILY 07/12/18 08/07/18 History aripiprazole 2 mg tablet 4 mg PO QDAY #60 tab 08/03/18 08/07/18 Rx hydrochlorothiazide 25 mg tablet 25 mg PO QDAY #60 tab 08/03/18 08/07/18 Rx Azithromycin [Zithromax] 250 mg PO DAILY #4 tab 08/10/18 Rx predniSONE Tab [Deltasone Tab] 10 mg PO DAILY #12 tab 08/10/18 Rx Follow-up with PCP in 1-2 weeks Condition at discharge was stable for discharge Exam - Vitals Vital Signs: Vital Signs Temperature 97.0 F Temperature Source Temporal Artery Scan Pulse Rate [Pulse Oximeter] 96 Pulse Rate 96 Respiratory Rate 18 Blood Pressure [Right Arm] 145/99 Blood Pressure [Left Arm] 138/98 Pulse Ox 92 Oxygen Flow Rate 5 Oxygen Delivery Method Nasal Cannula Height 5 ft 4 in Weight 144 lb 12.8 oz - General General Appearance: No Acute Distress Additional General Exam Details: Seem to be more irritable today compared to yesterday. - Head Head Exam: Normal Inspection - Eye Eye Exam: POSITIVE: Normal Appearance - ENT ENT Exam: POSITIVE: Normal Exam - Neck Neck Exam: Normal Inspection - Respiratory Additional Respiratory Exam Details: Decreased air entry otherwise clear - Cardiovascular Cardiovascular Exam: POSITIVE: RRR - GI/Abdominal GI/Abdominal Exam: POSITIVE: Normal Bowel Sounds, Non Tender, Non Distended, Soft, No Organomegaly - Rectal Rectal Exam: POSITIVE: Deferred - External Exam: POSITIVE: Deferred - Extremities Extremities Exam: POSITIVE: Normal Inspection - Neurological Neurological Exam: POSITIVE: Alert, CN II-XII Intact, No Facial Droop, Speech Intact / Clear - Psychiatric Psychiatric Exam: POSITIVE: Normal Affect - Integumentary Integumentary Exam: POSITIVE: Normal Color Patient Problems - Patient Problem List (1) Bipolar disease, chronic Status: Chronic Code(s): F31.9 - Bipolar disorder, unspecified Category: Medical (2) IBS (irritable bowel syndrome) Status: Chronic Code(s): K58.9 - Irritable bowel syndrome without diarrhea Qualifiers: Irritable bowel syndrome type: unspecified Qualified Code(s): K58.9 - Irritable bowel syndrome without diarrhea Category: Medical (3) COPD (chronic obstructive pulmonary disease) Status: Acute Code(s): J44.9 - Chronic obstructive pulmonary disease, unspecified Qualifiers: COPD type: COPD with acute exacerbation Qualified Code(s): J44.1 - Chronic obstructive pulmonary disease with (acute) exacerbation Category: Medical (4) Hypertension Status: Acute Code(s): I10 - Essential (primary) hypertension Qualifiers: Hypertension type: essential hypertension Qualified Code(s): I10 - Essential (primary) hypertension Category: Medical
[2018-08-18 16:37] VITALS: RESP 20; O2SAT 90
[2018-08-18 16:38] VITALS: BP 132/101; TEMP 97
== END 2018-08-10 08:45 | disposition home or self-care (01) ==
LOC: MED/SURG 19:41 → ER 19:41 → MED/SURG 23:42
PROVIDERS: ADMIT Family Medicine; ATTEND Family Medicine

== ENCOUNTER 2018-11-03 16:18 | Inpatient (IN) ==
[2018-11-03] MEDS ORDERED: Sodium Chloride 0.9% 1,000 ML PRIMARY IV ONE (17:21)
--- NOTE | 2018-11-03 17:58 | EKG ---
[address] [place] [address] Measurements Intervals Chicken Rate: 87 P: 68 MS: 128 QRS: 144 QRSD: 94 T: 54 QT: 347 QTc: 392 Interpretive Statements SINUS RHYTHM PATTERN CONSISTENT WITH PULMONARY DISEASE POSSIBLE RIGHT VENTRICULAR HYPERTROPHY [SOME/ALL OF: PROMINENT R IN V1, LATE TRANSITION, RAD, REDD, SSS] Compared to ECG 10/21/2018 21:23:31 No significant changes Electronically Signed On 11-04-18 11:00:29 MDT by Giovani Woodard MD [email or web address]
[2018-11-03 18:01] LABS: BASOPHILS # (AUTO) 0.02 10*3/UL; BASOPHILS % (AUTO) 0.2 % (0-1); EOSINOPHILS # (AUTO) 0.03 10*3/UL; EOSINOPHILS % (AUTO) 0.3 % (0-8); Hematocrit [HCT] 56.5 % (37.0-47.0); Hemoglobin [HGB] 18.5 g/dL (12.0-16.0); LYMPHOCYTES # (AUTO) 1.59 10*3/uL; MEAN CORPUSCULAR HGB CONC 32.7 g/dL (33-37); MEAN CORPUSCULAR VOLUME 88.6 FL (81-99); MEAN PLATELET VOLUME 10.5 FL (7.4-12.2); MONOCYTES # (AUTO) 0.41 10*3/UL (0.3-0.8); MONOCYTES % (AUTO) 4.1 % (5-15); NEUTROPHILS # (AUTO) 8.01 10*3/UL; NEUTROPHILS % (AUTO) 79.4 % (50-80); RED BLOOD COUNT 6.38 10^6/uL (4.20-5.40)
[2018-11-03 18:06] LABS: VENOUS PH 7.43 (7.32-7.42)
[2018-11-03 18:08] LABS: PLATELET MORPHOLOGY COMMENT NORMAL MORPHOLOGY (NORM); RBC MORPHOLOGY COMMENT NORMAL MORPHOLOGY (NORM); WBC MORPHOLOGY COMMENT NORMAL MORPHOLOGY (NORM)
[2018-11-03 18:19] LABS: BLOOD UREA NITROGEN 16 mg/dL (7-22); SERUM ALBUMIN 3.6 g/dL (3.5-4.8)
[2018-11-03 18:41] LABS: BILIRUBIN,URINE NEGATIVE (NEG); CLARITY,URINE CLEAR (CLEAR); COLOR,URINE YELLOW (Y); GLUCOSE, URINE (UA) NEGATIVE (NEG); OCCULT BLOOD,URINE Trace-lysed (NEG); PROTEIN,URINE 30 mg/dl (NEG); UROBILINOGEN,URINE 0.2 EU/dL (0.2)
[2018-11-03 18:46] LABS: RBC,URINE 0-3 /hpf; SQUAMOUS EPITHELIAL CELL,UR RARE; URINE SAMPLE TYPE CLEAN CATCH URINE
[2018-11-03 18:53] LABS: AMPHETAMINE SCREEN NEGATIVE (NEG); CANNABINOID SCREEN,URINE NEGATIVE (NEG); COCAINE SCREEN NEGATIVE (NEG); METHADONE URINE SCREEN NEGATIVE (NEG); METHAMPHETAMINES SCREEN,URINE NEGATIVE (NEG); OPIATE SCREEN,URINE NEGATIVE (NEG)
--- NOTE | 2018-11-03 19:12 | DI ---
PA /LATERAL CHEST, 11/03/2018 5:21 PM : Clinical History: Weakness. Previous Exam: 08/07/2018; 10/21/2018. Soft Tissues: No acute soft tissue abnormality. Bones: Normal. Heart: Mild cardiomegaly without CHF. Lungs: No infiltrates. Effusion(s): None. Mediastinum: The right hilum is more prominent and retracted more superiorly than on the prior exam. Adenopathy is suspected. There is also an abnormal density overlying the right side of the aortic kno b and on the lateral film, there is a density over the posterior aspect of the aortic arch. The exact etiology for this finding is uncertain. There is pulmonary arterial hypertension. Nodules: No pulmonary nodules. Readin. There is an unusual density in proximity to the aortic knob. A CT scan of the chest is recommende d for further evaluation. 2. The right hilum is more prominent than on the previous exam and appears more elevated. There is p ulmonary arterial hypertension. 3. Mild cardiomegaly without CHF.
--- NOTE | 2018-11-03 19:42 | DI ---
CT HEAD SCAN WITHOUT IV CONTRAST, 11/03/2018 5:21 PM : Clinical History: Weakness. Following. Previous Exam: 07/12/2018. Technique: Performed from the foramen magnum to vertex without IV contrast. Contrast Volume: None. 4th Ventricle: Normal. 3rd Ventricle: Mildly dilated, but normal for age. Lateral Ventricles: Mildly dilated, but normal for age. Sella: Normal size and normal pituitary gland. Cerebrum: There is a focal low-density area in the right occipital lobe on the medial surface consist ent with an old infarct in this is unchanged. There is a similar low density lesion with associated a trophy in the left occipital lobe peripherally at the level of the left occipital trigone. This is co nsistent with an old focal infarct that has occurred since the prior exam. Cerebellum: Normal. No cerebellopontine angle mass. Normal cerebellar tonsillar position. Brainstem: Normal. Atrophy: Mild to moderate cerebellar and cerebral atrophy. Extracerebral Mantles/Midline Shift: No extracerebral mantle or dural lesion. No midline shift. Sinuses: Mucous retention cysts or polyps in the left maxillary sinus Skull: Intact. READIN. No acute hemorrhagic or bland infarct. No evidence of a subdural, epidural, or subarachnoid hemor rhage. 2. 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 3. Mild to moderate cerebellar and cerebral atrophy.
--- NOTE | 2018-11-03 19:49 | DI ---
CT LUMBAR SPINE SCAN WITHOUT CONTRAST, 11/03/2018 5:26 PM : Clinical History: Back pain. Falls. Previous Exam: None at this facility. Technique: Scans are obtained from the mid body of T-11 to S4.. Sagittal and coronal reformatted sera ges are generated. Soft Tissues: Normal. Vertebral Bodies: The vertebral bodies are of normal height and size. There are no fractures. Disc Space Height: Severe disc space narrowing at L4-5 with sclerotic changes on both sides of the di sc space. The remaining disc spaces are of normal height. Alignment: Posterior alignment and posterior elements are normal. Apophyseal joints: Arthritic changes are present bilaterally at L4-5 and L5-S1. Pedicles: Pedicles are normal. SI Joints: The sacrum and SI joints are normal. Disc Levels: T11-12: Normal. T12-L1: Normal. L1-2: Normal. L2-3: Normal. L3-4: Normal. L4-5: Bulging but not herniated disc without canal or neural foraminal stenosis. L5-S1: Bulging but not herniated disc without canal or neural foraminal stenosis. READIN. No acute fracture or dislocation. 2. Bulging but not herniated discs without canal or neural foraminal stenosis at L4-5 and L5-S1.
--- NOTE | 2018-11-03 20:24 | DI ---
CT ANGIOGRAM OF THE CHEST, 11/03/2018 6:36 PM : Clinical History: Elevated D-dimer test. Previous Exam: 08/07/2018. Technique: Scans from base of neck to lung bases with IV contrast. Bolus tracking protocol was used f or timing the injection. Non-MIPS and MIPS sagittal/coronal images generated. IV Contrast: 65 mL of Isovue 300. Base of Neck: Normal. Nodes: Normal axillary, supraclavicular, and left hilar lymph nodes. There was an enlarged lymph node in the superior mediastinum on the previous exam and it has now decreased in size were it measures 1 5 mm in diameter. There are mildly enlarged right hilar lymph nodes that also have decreased in size. Heart: Normal. Calcifications are present in the left mainstem, the LAD, and scattered throughout the right coronary artery. Aorta: Normal thoracic aorta. No aneurysm or dissection. There is no mass associated with the aortic knob as was suspected on the chest x-ray obtained today. Pulmonary Arteries: No pulmonary emboli or infarcts; there is pulmonary arterial hypertension pulmona ry hypertension. Lungs: No infiltrates. Bullae are present indicating bullous emphysema. Seng A line Seng B lines are present consistent with chronic interstitial pulmonary fibrosis. Effusion(s): None. Nodules: None. Bony Structures: Normal visualized portions of ribs, sternum, scapulae, clavicles, and shoulders. Nor mal visualized portions of thoracic spine. Limited Upper Abdomen: Normal right adrenal gland and spleen. The left adrenal gland has a small 9 mm nodule that contains fat consistent with an adrenal adenoma. Normal limited views of liver and pancr eas. READIN. No pulmonary embolism or pulmonary embolism with infarction. There is pulmonary arterial hyperten jaydon. 2. There is no mass in proximity to the aortic arch as was suspected on the chest x-ray. 3. Centrilobular emphysema with bullae and pulmonary arterial hypertension and chronic interstitial pulmonary fibrosis.
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
[2018-11-03] MEDS ORDERED: ONDANSETRON 4 MG/2 ML VIAL IVP PRN ×2 (21:25→22:02)
[2018-11-03] MEDS ORDERED: CALCIUM CARBONATE 500 MG (TUMS) CHEWABLE TABLET PO PRN ×2 (21:25→22:02)
[2018-11-03] MEDS ORDERED: DOCUSATE 100 MG CAPSULE PO PRN ×2 (21:25→22:02)
[2018-11-03] MEDS ORDERED: LIDOCAINE W/ SODIUM BICARB 0.5 ML SYR SUBD PRN ×2 (21:25→22:02)
[2018-11-03] MEDS ORDERED: ACETAMINOPHEN 325 MG TABLET PO PRN ×2 (21:25→22:02)
[2018-11-03] MEDS ORDERED: IPRATROPIUM/ALBUTEROL SULFATE 3 ML NEB NEB SCH (22:00)
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
[2018-11-03] MEDS ORDERED: Bacitracin Oint 14.2 gm tube 14 APPLIC/14.2 GM TUBE TOPICAL ONE (22:31)
[2018-11-03] MEDS ORDERED: Insulin Sliding Scale Protocol SUBCUT PRN (22:43)
[2018-11-03] MEDS ORDERED: Glucagon Inj Vial 1 MG/ML VIAL IM PRN (22:43)
[2018-11-03] MEDS ORDERED: DEXTROSE 50%-WATER SYRINGE 50 ML SYRINGE IVP PRN (22:43)
[2018-11-03] MEDS ORDERED: DEXTROSE 31 GM GEL PO PRN (22:43)
[2018-11-03] MEDS: ceFAZolin Inj 2 GM in Sodium Chloride 0.9% 100 ML IV SCH (23:20)
[2018-11-03] MEDS: QUEtiapine Tab 100 MG TAB PO SCH (23:20)
[2018-11-04] MEDS: IPRATROPIUM/ALBUTEROL SULFATE 3 ML NEB NEB SCH ×4 (00:38→18:53)
[2018-11-04 05:16] LABS: BASOPHILS # (AUTO) 0.04 10*3/UL; BASOPHILS % (AUTO) 0.5 % (0-1); EOSINOPHILS # (AUTO) 0.11 10*3/UL; EOSINOPHILS % (AUTO) 1.3 % (0-8); Hematocrit [HCT] 51.4 % (37.0-47.0); Hemoglobin [HGB] 16.8 g/dL (12.0-16.0); LYMPHOCYTES # (AUTO) 3.28 10*3/uL; MEAN CORPUSCULAR HEMOGLOBIN 29.1 PG (27-31); MEAN CORPUSCULAR HGB CONC 32.7 g/dL (33-37); MEAN CORPUSCULAR VOLUME 88.9 FL (81-99); MEAN PLATELET VOLUME 10.8 FL (7.4-12.2); MONOCYTES # (AUTO) 0.73 10*3/UL (0.3-0.8); MONOCYTES % (AUTO) 8.9 % (5-15); NEUTROPHILS # (AUTO) 4.02 10*3/UL; NEUTROPHILS % (AUTO) 49.2 % (50-80); RED BLOOD COUNT 5.78 10^6/uL (4.20-5.40)
[2018-11-04 05:18] LABS: PLATELET MORPHOLOGY COMMENT NORMAL MORPHOLOGY (NORM); RBC MORPHOLOGY COMMENT NORMAL MORPHOLOGY (NORM); WBC MORPHOLOGY COMMENT NORMAL MORPHOLOGY (NORM)
[2018-11-04 05:42] LABS: HEMOGLOBIN A1C 7.14 % (4.2-6.0)
[2018-11-04] MEDS: ceFAZolin Inj 2 GM in Sodium Chloride 0.9% 100 ML IV SCH ×2 (05:50→15:23)
[2018-11-04] MEDS ORDERED: Meloxicam Tab 7.5 MG TABLET PO SCH (09:00)
[2018-11-04] MEDS ORDERED: ARIPIPRAZOLE PO SCH ×2 (09:00)
[2018-11-04] MEDS: Insulin Lispro Flexpen 300 UNIT/3 ML INSULN.PEN SUBCUT SCH ×3 (10:08→17:03)
[2018-11-04] MEDS: Bacitracin Oint 14.2 gm tube 14 APPLIC/14.2 GM TUBE TOPICAL SCH ×2 (10:09→20:24)
[2018-11-04] MEDS: Meloxicam Tab 7.5 MG TABLET PO SCH (10:09)
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
[2018-11-04] MEDS: CEPHALEXIN 500 MG CAPSULE PO SCH ×2 (17:17→20:24)
[2018-11-04] MEDS: QUEtiapine Tab 100 MG TAB PO SCH (20:24)
[2018-11-05] MEDS: Insulin Lispro Flexpen 300 UNIT/3 ML INSULN.PEN SUBCUT SCH ×5 (00:04→21:07)
[2018-11-05] MEDS: IPRATROPIUM/ALBUTEROL SULFATE 3 ML NEB NEB SCH ×4 (03:44→22:36)
[2018-11-05 04:44] LABS: BASOPHILS # (AUTO) 0.03 10*3/UL; BASOPHILS % (AUTO) 0.4 % (0-1); EOSINOPHILS # (AUTO) 0.13 10*3/UL; EOSINOPHILS % (AUTO) 1.8 % (0-8); Hematocrit [HCT] 51.9 % (37.0-47.0); LYMPHOCYTES # (AUTO) 2.64 10*3/uL; MEAN CORPUSCULAR HEMOGLOBIN 28.9 PG (27-31); MEAN CORPUSCULAR HGB CONC 32.8 g/dL (33-37); MEAN CORPUSCULAR VOLUME 88.3 FL (81-99); MEAN PLATELET VOLUME 10.6 FL (7.4-12.2); MONOCYTES # (AUTO) 0.73 10*3/UL (0.3-0.8); MONOCYTES % (AUTO) 9.9 % (5-15); NEUTROPHILS # (AUTO) 3.81 10*3/UL; NEUTROPHILS % (AUTO) 51.9 % (50-80); RED BLOOD COUNT 5.88 10^6/uL (4.20-5.40)
[2018-11-05 04:47] LABS: PLATELET MORPHOLOGY COMMENT NORMAL MORPHOLOGY (NORM); RBC MORPHOLOGY COMMENT NORMAL MORPHOLOGY (NORM); WBC MORPHOLOGY COMMENT NORMAL MORPHOLOGY (NORM)
[2018-11-05 04:54] LABS: BLOOD UREA NITROGEN 13 mg/dL (7-22)
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
[2018-11-05] MEDS: POTASSIUM CHLORIDE 20 MEQ TAB PO SCH ×2 (11:01→17:04)
[2018-11-05] MEDS: CEPHALEXIN 500 MG CAPSULE PO SCH ×4 (11:01→21:01)
[2018-11-05] MEDS: Bacitracin Oint 14.2 gm tube 14 APPLIC/14.2 GM TUBE TOPICAL SCH ×2 (11:01→21:02)
[2018-11-05] MEDS: Meloxicam Tab 7.5 MG TABLET PO SCH (11:02)
[2018-11-05] MEDS: QUEtiapine Tab 100 MG TAB PO SCH (21:01)
[2018-11-06] MEDS: IPRATROPIUM/ALBUTEROL SULFATE 3 ML NEB NEB SCH ×2 (03:18→09:24)
[2018-11-06] MEDS: POTASSIUM CHLORIDE 20 MEQ TAB PO SCH ×2 (10:02→17:26)
[2018-11-06] MEDS: CEPHALEXIN 500 MG CAPSULE PO SCH ×4 (10:03→21:10)
[2018-11-06] MEDS: Bacitracin Oint 14.2 gm tube 14 APPLIC/14.2 GM TUBE TOPICAL SCH ×2 (10:03→21:10)
[2018-11-06] MEDS: Meloxicam Tab 7.5 MG TABLET PO SCH (10:03)
[2018-11-06] MEDS: Insulin Lispro Flexpen 300 UNIT/3 ML INSULN.PEN SUBCUT SCH ×4 (10:05→21:19)
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
[2018-11-06] MEDS: QUEtiapine Tab 100 MG TAB PO SCH (21:10)
[2018-11-07] MEDS: POTASSIUM CHLORIDE 20 MEQ TAB PO SCH ×3 (07:22→16:45)
--- NOTE | 2018-11-07 09:11 | PDOC(PROG) ---
Interval History: Patient is doing well no chest pain nausea or vomiting her cellulitis her face is resolved she will continue Keflex. She does refuse she refused her MRI of her head she will think about it but that she does not want to get it discussed with Miladis as well Objective : Data - Labs CBC and BMP: 11/05/18 04:15 11/05/18 04:15 Objective : Exam - General General Appearance: Cooperative - Respiratory Respiratory Exam: Clear to Auscultation - Bilaterally, Breathing Non Labored, Normal To Percussion, Normal to Percussion and Palpation - Cardiovascular Cardiovascular Exam: RRR, No Murmur, No Clicks, No Gallops, No Rubs, PMI Non-D isplaced - GI/Abdominal GI/Abdominal Exam: Normal Bowel Sounds, Non Tender, Non Distended, Soft, No Masses, No Hepatomegaly, No Splenomegaly, No Organomegaly Assessment and Plan - Patient Problems (1) Facial cellulitis Current Visit: Yes Status: Acute Comment: Resolving continue with Keflex Code(s): L03.211 - Cellulitis of face (2) Diabetes mellitus Current Visit: Yes Status: Acute Comment: Stable at present time Code(s): E11.9 - Type 2 diabetes mellitus without complications Qualifiers: Diabetes mellitus type: type 2 Diabetes mellitus half-way insulin use: without moth exterminator use Diabetes mellitus complication status: without complication Qualified Code(s): E11.9 - Type 2 diabetes mellitus without complications (3) Hypertension Current Visit: Yes Status: Acute Code(s): I10 - Essential (primary) hypertension Qualifiers: Hypertension type: essential hypertension Qualified Code(s): I10 - Essentia l (primary) hypertension (4) Failure to thrive Current Visit: Yes Status: Acute Comment: Family meeting yesterday agreement is that [facility] is going to provide her medication and meals for wheels was recommended the patient get a few more days of physical therapy before discharging home PT noticed some weakness on the left arm and MRI was ordered to rule out CVA patient refused patient has no slurred speech Qualifiers: Failure to thrive age range: in adult Qualified Code(s): R62.7 - Adult failure to thrive (5) Severe manic bipolar 1 disorder with psychotic behavior Current Visit: Yes Status: Acute Code(s): F31.2 - Bipolar disorder, current episode manic severe with psychotic features (6) Syncope and collapse Current Visit: Yes Status: Acute Comment: Most likely from not wearing oxygen and home Code(s): R55 - Syncope and collapse (7) COPD (chronic obstructive pulmonary disease) Current Visit: Yes Status: Acute Comment: Stable at present time Code(s): J44.9 - Chronic obstructive pulmonary disease, unspecified Qualifiers: COPD type: emphysema Emphysema type: centrilobular Qualified Code(s): J43.2 - Centrilobular emphysema
[2018-11-07] MEDS: Insulin Lispro Flexpen 300 UNIT/3 ML INSULN.PEN SUBCUT SCH ×4 (09:25→20:48)
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
--- NOTE | 2018-11-07 10:10 | PT AM DAY ---
Diagnosis : Weakness AM - Physical Therapy S: The patient reports no new changes. O: The patient was seen in her room today on several occasions. She was not on oxygen. She performed some general strengthening exercises for her upper and lower extremities. A: The patient's oxygen saturation was okay today. She was very lethargic; we didn't get a whole lot out of her today. The patient is in the hospital and she does have supervision. The therapist's opinion is that the patient is probably not capable of living independently as she is a risk to herself and her safety is not good. We will continue to do debridement to the face and nose when necessary and continue to work on general strengthening of uppers and lowers and overall mobility activities. Her bigger problem is her social issues. We need to find an appropriate placement in the community where she will have the appropriate supervision so that she is not a risk to herself or others. P: Continue seeing patient BID during the week and one time per day over the weekend for transfers, ambulation, and range of motion/strengthening exercises. ALEXA
[2018-11-07] MEDS: Meloxicam Tab 7.5 MG TABLET PO SCH (10:15)
[2018-11-07] MEDS: CEPHALEXIN 500 MG CAPSULE PO SCH ×4 (10:15→20:17)
[2018-11-07] MEDS: Bacitracin Oint 14.2 gm tube 14 APPLIC/14.2 GM TUBE TOPICAL SCH ×2 (10:15→20:48)
--- NOTE | 2018-11-07 11:15 | DI ---
MRI Brain WO Contrast,11/07/2018 6:28 AM: Clinical History: Upper extremity weakness. Previous Exam: June 13, 2017 Findings: Multiplanar MR images are obtained through the brain without contrast, and demonstrate an area involv ing the left cerebellar peduncle. This area measures 2.4 cm in diameter. There is also an area within the left parieto-occipital lobe demonstrating restricted diffusion measu ring 2.0 x 1.5 cm in cross-section. There are some vague areas of increased signal and restricted dif fusion within the right occipital lobe not well seen on this exam as this appears to be of a differen t age. These areas also demonstrate increased FLAIR signal and increased T2 signal. The cerebellopontine angles are normal. Internal auditory canals are unremarkable. The major vascular flow voids are within normal limits. The paranasal sinuses and intraorbital structures are unremarkable. There are other scattered areas o f increased FLAIR signal which do not demonstrate restricted diffusion. The midline structures are unremarkable. Signal within the visualized cervical spine is unremarkable. The upper cervical spine is also unremarkable. The sella and parasellar region is unremarkable. Signal within the clivus is normal. Impression: 1. Abnormally restricted diffusion involving the left cerebellar peduncle, the left parieto-occipital lobe and the right occipital lobe most consistent with acute ischemia.
[2018-11-07] MEDS: ASPIRIN EC 81 MG TABLET PO SCH (13:20)
[2018-11-07] MEDS: CLOPIDOGREL 75 MG TABLET PO SCH (13:21)
--- NOTE | 2018-11-07 14:28 | DI ---
US Carotids Bilateral,11/07/2018 11:30 AM: Clinical History: Cerebrovascular accident. Previous Exam: None at this facility. Findings: Multiple grayscale and color Doppler sonographic images are obtained through the carotid systems bila terally, and demonstrate mild peripheral vascular disease within the left carotid bulb. There is no elevated peak systolic velocity within the common carotid or internal carotid arteries. The ICA to CCA ratio on the right measured 1.4 and on the left measure 1.0. Flow within the vertebral arteries is antegrade bilaterally. There is no significant spectral broadening. Impression: No hemodynamically significant stenosis.
--- NOTE | 2018-11-07 14:49 | PT.PROG ---
Progress Note Progress Note: S. Patient agreed to go for a walk this morning. O. Patient ambulated 100 feet in the mayer and was wheeled back to her room where she was left in the wheelchair with her son in the room. A. Patient continues to struggle with left sided weakness and lack of coordination. She required frequent verbal cues to ambulate and perform transfers safely. Patient would continue to benefit from skilled therapy to increase strength, mobility and safety. P. Continue POC.
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
--- NOTE | 2018-11-07 16:30 | PT.PROG ---
Progress Note Progress Note: S. Patient stated that she does not want to do much therapy this afternoon, she reports she is very tired today. O. Patient ambulated 10 feet to the restroom, then performed sit to stands x 5, Patient ambulated 10 feet back to the chair where she was left with alarm and call light. A. Patient continues to struggle with mobility and coordination on her left side, she would continue to benefit from skilled therapy to increase strength, endurance and safety at this time. P. Continue POC.
[2018-11-07] MEDS: IPRATROPIUM/ALBUTEROL SULFATE 3 ML NEB NEB SCH ×2 (19:58→21:10)
[2018-11-07] MEDS: QUEtiapine Tab 100 MG TAB PO SCH (20:17)
[2018-11-08] MEDS: IPRATROPIUM/ALBUTEROL SULFATE 3 ML NEB NEB SCH ×7 (01:31→19:46)
[2018-11-08] MEDS: Insulin Lispro Flexpen 300 UNIT/3 ML INSULN.PEN SUBCUT SCH ×4 (09:20→20:55)
[2018-11-08] MEDS: CLOPIDOGREL 75 MG TABLET PO SCH ×2 (10:09→10:15)
[2018-11-08] MEDS: ASPIRIN EC 81 MG TABLET PO SCH ×2 (10:10→10:15)
[2018-11-08] MEDS: Meloxicam Tab 7.5 MG TABLET PO SCH ×2 (10:10→10:15)
[2018-11-08] MEDS: CEPHALEXIN 500 MG CAPSULE PO SCH ×5 (10:10→20:51)
[2018-11-08] MEDS: Bacitracin Oint 14.2 gm tube 14 APPLIC/14.2 GM TUBE TOPICAL SCH ×2 (10:10→20:52)
[2018-11-08] MEDS: POTASSIUM CHLORIDE 20 MEQ TAB PO SCH ×2 (10:10→17:47)
--- NOTE | 2018-11-08 11:19 | OT.PROG ---
Progress Note Progress Note: S: pt stated that she needed to use the bathroom, she needed her milk shake and that she "was crazy but not that crazy". O: tx consisted of toilet transfer from standing to sitting, doffing of LE pants with MAX A , completion of toileting tasks and hygiene independently, attempts of 9 hole peg test, FM coordination and pinching tasks, bed mobility from EOB to supine with SBA for safety. A: pt was unable to process the use of using her L hand only for 9 hole peg test. pt was able to use R hand independently and completed test in 42 seconds. pt attempted FM exercises with L hand but was unsuccessful. P: will attempt 9 hole peg test on L UE again. continue POC
--- NOTE | 2018-11-08 11:42 | PT.PROG ---
Progress Note Progress Note: S. Patient stated that she is very tired after working with OT. O. Patient ambulated 10 feet to the restroom then 15 feet to the bed. Patient performed sit to stands x 5 and was left in bed with alarm and call light. A. Patient continues to struggle with left side weakness and lack of coordination. Patient continues to require mod assist with ambulation and transfers. She would continue to benefit from skilled therapy to increase strength, mobility and safety at this time. P. Continue POC.
--- NOTE | 2018-11-08 16:39 | PDOC(PROG) ---
Date of Service: 11/08/18 Time of Service: 16:33 Interval History: Patient seen and evaluated earlier today. Had echocardiogram done today, results pending. No evidence of atrial fibrillation. Objective : Data - Labs CBC and BMP: 11/05/18 04:15 11/05/18 04:15 Additional Lab Results: Selected Entries 11/07/18 21:00 11/08/18 07:00 11/08/18 11:00 Finger Stick Blood Glucose 119 H 121 H 191 H Objective : Exam - General General Appearance: No Acute Distress, Cooperative Additional General Exam Details: Vital Signs - Last Taken Temperature 97.2 F 11/08/18 13:00 Pulse Rate 85 11/08/18 13:00 Respiratory Rate 20 11/08/18 13:00 Blood Pressure 142/86 11/08/18 13:00 Pulse Ox 88 11/08/18 13:00 - Head Additional Head Exam Details: Facial cellulitis is significantly improved, resolved, and we'll stop Keflex after total of 7 days, and I've changed order to reflect that. Given that the patient has had 2 recent strokes, and she is on aspirin and Plavix, I will stop the anti-inflammatory. This will hopefully help reduce bleeding risk. Echocardiogram done and results pending. Thus far, no signs of atrial fibrillation. [facility] - Eye Eye Exam: No Scleral Icterus - ENT ENT Exam: Mucous Membranes Moist Assessment and Plan - Patient Problems (1) COPD (chronic obstructive pulmonary disease) Current Visit: Yes Status: Acute Code(s): J44.9 - Chronic obstructive pulmonary disease, unspecified Qualifiers: COPD type: emphysema Emphysema type: centrilobular Qualified Code(s): J43.2 - Centrilobular emphysema (2) Diabetes mellitus Current Visit: Yes Status: Acute Code(s): E11.9 - Type 2 diabetes mellitus without complications Qualifiers: Diabetes mellitus type: type 2 Diabetes mellitus long-term insulin use: without long-term use Diabetes mellitus complication status: without c omplication Qualified Code(s): E11.9 - Type 2 diabetes mellitus without c omplications (3) Hypertension Current Visit: Yes Status: Acute Code(s): I10 - Essential (primary) hypert ension Qualifiers: Hypertension type: essential hypertension Qualified Code(s): I10 - Essential (primary) hypertension (4) Failure to thrive Current Visit: Yes Status: Acute Qualifiers: Failure to thrive age range: in adult Qualified Code(s): R62.7 - Adult failure to thrive (5) Facial cellulitis Current Visit: Yes Status: Acute Code(s): L03.211 - Cellulitis of face (6) Severe manic bipolar 1 disorder with psychotic behavior Current Visit: Yes Status: Acute Code(s): F31.2 - Bipolar disorder, current episode manic severe with psychotic features (7) Syncope and collapse Current Visit: Yes Status: Acute Code(s): R55 - Syncope and collapse
[2018-11-08] MEDS: QUEtiapine Tab 100 MG TAB PO SCH (20:51)
[2018-11-08] MEDS: NICOTINE 21 MG /DAY PATCH TRANSDERM SCH (20:55)
[2018-11-09] MEDS: IPRATROPIUM/ALBUTEROL SULFATE 3 ML NEB NEB SCH ×3 (05:07→21:03)
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
--- NOTE | 2018-11-09 09:41 | OT PM DAY ---
Diagnosis : Weakness PM - Occupational Therapy S: The patient initially reported she was willing to come down to therapy but needed to use the restroom first. After the bathroom, she decided she would not come down to therapy as she was too embarrassed. The therapist told the patient it would be beneficial to come down, but the patient did not want to come down to therapy. O: The patient transferred from chair to wheelchair with min assist. She still has difficulty hanging onto the left side of the walker and needed the therapist's assistance to hang onto the walker as her hand does tend to slip off of the walker. The patient transferred into the bathroom. She needed mod assist to keep her balance and to turn to the toilet. She needed cues to reach back to the toilet. After bowel movement, the patient needed set up for toilet paper and wipes to wipe self but was able to do so independently. We then went to the sink and practiced standing at sink to wash hands and complete hygiene activity. The patient needed a lot of verbal cues, she seemed to get distracted with the task at hand and needed mod assist for keeping her balance. The patient then transferred from the sink to the chair with mod assist to keep her balance. A: The patient requires assistance for her balance, hygiene skills, and functional transfers. P: Continue seeing patient BID during the week and one time per day over the weekend for upper extremity strengthening, ADLs, and overall functional mobility. MTDD
--- NOTE | 2018-11-09 10:08 | OT.PROG ---
Progress Note Progress Note: S: pt stated that she wanted coffee. O: tx consisted of reaching exercises with L hand, 9 hole peg board exercise, R TB exercises to L UE of biceps and triceps x15. A: pt was able to place one peg with R hand and attempted to complete a second peg but was unsuccessful. placing peg and attempt took 1 min. pts score with R hand yesterday was placing pegs and removing them in under 50 seconds. P: continue POC
--- NOTE | 2018-11-09 10:30 | PT AM DAY ---
Diagnosis : Weakness AM - Physical Therapy S: The patient is very lethargic this morning. O: Today we worked on transfer training, sit to stands, and ambulation. The patient still has a significant lean to the left and has a hard time hanging onto the walker with that left hand. She has significant weakness and dysmetria of the left upper extremity. She is very lethargic and needs constant verbal cueing. A: The patient is still not willing to help us with use of the oxygen at times. She is very confused. Constant use of the oxygen would probably help her. When she is not on oxygen, her saturation is anywhere from 78-81%. When she was using the oxygen, her saturation is in the mid 80s. P: Continue seeing patient BID during the week and one time per day over the weekend for transfers, ambulation, and range of motion/strengthening exercises. MTDD
[2018-11-09] MEDS: Bacitracin Oint 14.2 gm tube 14 APPLIC/14.2 GM TUBE TOPICAL SCH ×2 (13:14→21:07)
[2018-11-09] MEDS: Insulin Lispro Flexpen 300 UNIT/3 ML INSULN.PEN SUBCUT SCH ×3 (13:14→21:02)
[2018-11-09] MEDS: ASPIRIN EC 81 MG TABLET PO SCH (13:14)
[2018-11-09] MEDS: POTASSIUM CHLORIDE 20 MEQ TAB PO SCH ×2 (13:14→17:45)
[2018-11-09] MEDS: ENALAPRIL 10 MG TABLET PO SCH (13:15)
[2018-11-09] MEDS: NICOTINE 21 MG /DAY PATCH TRANSDERM SCH (13:15)
[2018-11-09] MEDS: CLOPIDOGREL 75 MG TABLET PO SCH (13:15)
[2018-11-09] MEDS: CEPHALEXIN 500 MG CAPSULE PO SCH ×4 (13:15→21:06)
--- NOTE | 2018-11-09 16:30 | PDOC(PROG) ---
Date of Service: 11/09/18 Time of Service: 16:20 Interval History: seen and examined earlier today. no chest pain, no nausea or vomiting, was not interested in talking today on exam. voiced no complaints. Objective : Data - Labs CBC and BMP: 11/05/18 04:15 11/05/18 04:15 Objective : Exam - General General Appearance: No Acute Distress, Cooperative Additional General Exam Details: Vital Signs - Last Taken Temperature 98.7 F 11/09/18 15:46 Pulse Rate 85 11/09/18 15:46 Respiratory Rate 19 11/09/18 15:46 Blood Pressure 124/76 11/09/18 15:46 Pulse Ox 85 11/09/18 15:46 - Head Additional Head Exam Details: facial webster are improved. - Eye Eye Exam: No Scleral Icterus - ENT ENT Exam: Mucous Membranes Moist - Respiratory Respiratory Exam: Clear to Auscultation - Bilaterally, Breathing Non Labored - Cardiovascular Cardiovascular Exam: RRR, No Murmur, No Clicks, No Gallops, No Rubs, No JVD - GI/Abdominal GI/Abdominal Exam: Normal Bowel Sounds, Non Tender, Non Distended, Soft - Extremities Extremities Exam: No Clubbing Present, No Edema Present, No Cyanosis Present - Neurological Neurological Exam: Alert, Oriented x 3, No Facial Droop, Speech Intact / Clear, Moves All Extremities Equally Assessment and Plan - Patient Problems (1) COPD (chronic obstructive pulmonary disease) Current Visit: Yes Status: Acute Code(s): J44.9 - Chronic obstructive pulmonary disease, unspecified Qualifiers: COPD type: emphysema Emphysema type: centrilobular Qualified Code(s): J43.2 - Centrilobular emphysema (2) Diabetes mellitus Current Visit: Yes Status: Acute Code(s): E11.9 - Type 2 diabetes mellitus without complications Qualifiers: Diabetes mellitus type: type 2 Diabetes mellitus fci insulin use: without fci use Diabetes mellitus complication status: without comp lication Qualified Code(s): E11.9 - Type 2 diabetes mellitus without comp lications (3) Hypertension Current Visit: Yes Status: Acute Code(s): I10 - Essential (primary) hypertension Qualifiers: Hypertension type: essential hypertension Qualified Code(s): I10 - Essential (primary) hypertension (4) Failure to thrive Current Visit: Yes Status: Acute Qualifiers: Failure to thrive age range: in adult Qualified Code(s): R62.7 - Adult failure to thrive (5) Facial cellulitis Current Visit: Yes Status: Acute Code(s): L03.211 - Cellulitis of face (6) Severe manic bipolar 1 disorder with psychotic behavior Current Visit: Yes Status: Acute Code(s): F31.2 - Bipolar disorder, current episode manic severe with psychotic features (7) Syncope and collapse Current Visit: Yes Status: Acute Code(s): R55 - Syncope and collapse - Assessment / Plan Additional Assessment/Plan Details: This situation is complex in that the patient has had two recent strokes, and has need for continued PT/OT, RN care and placement with gait instabilities and medical needs that are complicated by chronic psychiatric issues. SNFs thus far have refused (several), so we are trying to find placement. Disposition home is not safe at all. The other challenging issue is that the patient is lucid and I do not think I can declare her incompetent. To have an incompetency evaluation would be reasonable, but I think he needs to be done with a psychiatrist or psychologist. I ordered labs and they're pending.
--- NOTE | 2018-11-09 16:33 | PT.PROG ---
Progress Note Progress Note: Patient refused therapy this afternoon.
[2018-11-09] MEDS: QUEtiapine Tab 100 MG TAB PO SCH (21:06)
[2018-11-10] MEDS: IPRATROPIUM/ALBUTEROL SULFATE 3 ML NEB NEB SCH ×4 (00:39→18:49)
[2018-11-10] MEDS: Insulin Lispro Flexpen 300 UNIT/3 ML INSULN.PEN SUBCUT SCH ×4 (07:41→20:34)
--- NOTE | 2018-11-10 10:29 | OT.PROG ---
Progress Note Progress Note: S: pt stated that she was feeling okay and needed coffee. O: tx consisted of toileting tasks and hygiene with x2 vcs for toilet hygiene, STS from toilet x 5, functional ambulation x 15' with FWW and MOD A for stability while walking. pt completed transfer to recliner with MOD A for balance. pt refused to participate and tx session was ended. A: pt is slowly making small gains in ambulation. pt needs verbal cues for walker safety. pts cognitive status hinders her ability to process safety and make more gains at this time. P: continue POC
[2018-11-10] MEDS: ASPIRIN EC 81 MG TABLET PO SCH (13:32)
[2018-11-10] MEDS: POTASSIUM CHLORIDE 20 MEQ TAB PO SCH ×2 (13:32→18:02)
[2018-11-10] MEDS: CLOPIDOGREL 75 MG TABLET PO SCH (13:32)
[2018-11-10] MEDS: Bacitracin Oint 14.2 gm tube 14 APPLIC/14.2 GM TUBE TOPICAL SCH ×2 (13:32→20:32)
[2018-11-10] MEDS: NICOTINE 21 MG /DAY PATCH TRANSDERM SCH (13:32)
[2018-11-10] MEDS: ENALAPRIL 10 MG TABLET PO SCH (13:32)
--- NOTE | 2018-11-10 16:25 | OT.PROG ---
Progress Note Progress Note: S: pt was verbal today but very difficult to understand. O: pt was seen in therapy today. While she was on heat she completed putty, rTB in LUE bicep flex/shoulder ext, and B cane x15. A: pt was having difficulty with hand control today of her L hand & presented with aphasia. P: continue per POC.
--- NOTE | 2018-11-10 16:49 | PT.PROG ---
Progress Note Progress Note: S. Patient stated she did not want to perform exercises this afternoon. O. Patient ambulated 10 feet to the wheelchair and was wheeled to the therapy gym where she transferred to the table and had heat to her back, then performed sit to stand transfers x 5, she then was wheeled back to her room where she ambulated 10 feet back to her chair and was left with alarm and call light. A. Patient tolerated ambulation and transfers fair, she continues to require frequent verbal cues and mod assist with safety during transfers and ambulation. She would continue to benefit from skilled therapy to increase mobility and safety at this time. P. Continue POC.
--- NOTE | 2018-11-10 17:53 | PDOC(PROG) ---
Date of Service: 11/10/18 Time of Service: 17:40 Interval History: patient seen and evaluated earlier. she is refusing medications, refusing lab draws. no chest pains, no SOB, no nausea or vomiting. patient complained of being tired. Objective : Data - Labs CBC and BMP: 11/05/18 04:15 11/05/18 04:15 Objective : Exam - General General Appearance: No Acute Distress, Cooperative Additional General Exam Details: Vital Signs - Last Taken Temperature 98.7 F 11/09/18 15:46 Pulse Rate 82 11/09/18 19:00 Respiratory Rate 18 11/09/18 19:00 Blood Pressure 124/76 11/09/18 15:46 Pulse Ox 92 11/09/18 18:57 - Eye Eye Exam: No Scleral Icterus - ENT ENT Exam: Mucous Membranes Moist - Neck Neck Exam: JVP is not Raised - Respiratory Respiratory Exam: Breathing Non Labored, Coarse Breath Sounds - Cardiovascular Cardiovascular Exam: RRR, No Murmur, No Clicks, No Gallops, No Rubs, No JVD - GI/Abdominal GI/Abdominal Exam: Normal Bowel Sounds, Non Tender, Non Distended, Soft - Extremities Extremities Exam: No Clubbing Present, No Edema Present, No Cyanosis Present - Neurological Neurological Exam: Alert, Oriented x 3, No Facial Droop, Speech Intact / Clear Assessment and Plan - Patient Problems (1) CVA (cerebral vascular accident) Current Visit: Yes Status: Acute Code(s): I63.9 - Cerebral infarction, unspecified Qualifiers: CVA mechanism: occlusion Precerebral and cerebral artery: unspecified cerebral artery Qualified Code(s): I63.50 - Cerebral infarction due to unspecified occlusion or stenosis of unspecified cerebral artery (2) COPD (chronic obstructive pulmonary disease) Current Visit: Yes Status: Acute Code(s): J44.9 - Chronic obstructive pulmonary disease, unspecified Qualifiers: COPD type: emphysema Emphysema type: centrilobular Qualified Code(s): J43.2 - Centrilobular emphysema (3) Diabetes mellitus Current Visit: Yes Status: Acute Code(s): E11.9 - Type 2 diabetes mellitus without complications Qualifiers: Diabetes mellitus type: type 2 Diabetes mellitus environmental consultant insulin use: without fpc use Diabetes mellitus complication status: without complication Qualified Code(s): E11.9 - Type 2 diabetes mellitus without complications (4) Hypertension Current Visit: Yes Status: Acute Code(s): I10 - Essential (primary) hypertension Qualifiers: Hypertension type: essential hypertension Qualified Code(s): I10 - Essential (primary) hypertension (5) Failure to thrive Current Visit: Yes Status: Acute Qualifiers: Failure to thrive age range: in adult Qualified Code(s): R62.7 - Adult failure to thrive (6) Facial cellulitis Current Visit: Yes Status: Acute Code(s): L03.211 - Cellulitis of face (7) Severe manic bipolar 1 disorder with psychotic behavior Current Visit: Yes Status: Acute Code(s): F31.2 - Bipolar disorder, current episode manic severe with psychotic features (8) Syncope and collapse Current Visit: Yes Status: Acute Code(s): R55 - Syncope and collapse - Assessment / Plan Additional Assessment/Plan Details: reviewed ECHO, carotid ultrasound--likely intracerebral artery CVA. no embolic CVA. continue plavix on BP meds on nicotine patch for smoking cessation unfortunately, patient refusing medications and has been intermittently doing therapy. no aggressive behaviors noted placement still pending executive secretary social welfare was helping coordinate with DFS and son and [id number], some sort of competency evaluation. I told them it needs to be done by a psychiatrist or psychologist. This can help them in terms of guardianship.
[2018-11-10] MEDS: QUEtiapine Tab 100 MG TAB PO SCH (20:32)
[2018-11-11] MEDS: IPRATROPIUM/ALBUTEROL SULFATE 3 ML NEB NEB SCH ×4 (01:15→23:32)
[2018-11-11] MEDS: Insulin Lispro Flexpen 300 UNIT/3 ML INSULN.PEN SUBCUT SCH ×4 (11:45→21:25)
--- NOTE | 2018-11-11 11:53 | OT.PROG ---
Progress Note Progress Note: S: pt was talkative today and little easier to understand. She did report being sad that she had a stroke. O: pt was seen in her room today in the a.m. She completed x5 transfers, 1 to bathroom with CGA at all times. She did receive proprioceptive input through L LE and UE. She completed toilet hygiene Ind before returning to her chair. She was left in chair with call light within reach and alarm on. A: pt needed min A x2 to prevent fall to her L side today. She may continue to progress with transfers to improve her overall function. P: continue per POC.
[2018-11-11] MEDS: ASPIRIN EC 81 MG TABLET PO SCH (14:23)
[2018-11-11] MEDS: POTASSIUM CHLORIDE 20 MEQ TAB PO SCH ×2 (14:23→17:16)
[2018-11-11] MEDS: ENALAPRIL 10 MG TABLET PO SCH (14:24)
[2018-11-11] MEDS: NICOTINE 21 MG /DAY PATCH TRANSDERM SCH (14:24)
[2018-11-11] MEDS: Bacitracin Oint 14.2 gm tube 14 APPLIC/14.2 GM TUBE TOPICAL SCH ×2 (14:24→20:35)
[2018-11-11] MEDS: CLOPIDOGREL 75 MG TABLET PO SCH (14:24)
--- NOTE | 2018-11-11 14:55 | PDOC(PROG) ---
Date of Service: 11/11/18 Time of Service: 14:48 Interval History: seen, evaluated earlier no chest pain, SOB, nausea or vomiting stated to me she was in the hospital because of a stroke, understood we had her on medications to try to prevent further CVA. states she is normally more tired in the AM, tired today. Objective : Data - Labs CBC and BMP: 11/05/18 04:15 11/05/18 04:15 Objective : Exam - General General Appearance: No Acute Distress, Cooperative Additional General Exam Details: Vital Signs - Last Taken Temperature 97.6 F 11/11/18 13:00 Pulse Rate 91 11/11/18 13:00 Respiratory Rate 24 11/11/18 13:00 Blood Pressure 124/80 11/11/18 13:00 Pulse Ox 88 11/11/18 13:00 - Eye Eye Exam: No Scleral Icterus - ENT ENT Exam: Mucous Membranes Moist - Neck Neck Exam: JVP is not Raised - Respiratory Respiratory Exam: Clear to Auscultation - Bilaterally, Breathing Non Labored - Cardiovascular Cardiovascular Exam: RRR, No Murmur, No Clicks, No Gallops, No Rubs, No JVD - GI/Abdominal GI/Abdominal Exam: Non Tender, Non Distended, Soft - Extremities Extremities Exam: No Clubbing Present, No Edema Present, No Cyanosis Present - Neurological Neurological Exam: Alert, Oriented x 3, No Facial Droop, Speech Intact / Clear Assessment and Plan - Patient Problems (1) CVA (cerebral vascular accident) Current Visit: Yes Status: Acute Code(s): I63.9 - Cerebral infarction, unspecified Qualifiers: CVA mechanism: occlusion Precerebral and cerebral artery: unspecified cerebral artery Qualified Code(s): I63.50 - Cerebral infarction due to unspecified occlusion or stenosis of unspecified cerebral artery (2) COPD (chronic obstructive pulmonary disease) Current Visit: Yes Status: Acute Code(s): J44.9 - Chronic obstructive pulmonary disease, unspecified Qualifiers: COPD type: emphysema Emphysema type: centrilobular Qualified Code(s): J43.2 - Centrilobular emphysema (3) Diabetes mellitus Current Visit: Yes Status: Acute Code(s): E11.9 - Type 2 diabetes mellitus without complications Qualifiers: Diabetes mellitus type: type 2 Diabetes mellitus termite control service representative insulin use: without jail use Diabetes mellitus complication status: without complication Qualified Code(s): E11.9 - Type 2 diabetes mellitus without complications (4) Hypertension Current Visit: Yes Status: Acute Code(s): I10 - Essential (primary) hypertension Qualifiers: Hypertension type: essential hypertension Qualified Code(s): I10 - Essential (primary) hypertension (5) Failure to thrive Current Visit: Yes Status: Acute Qualifiers: Failure to thrive age range: in adult Qualified Code(s): R62.7 - Adult failure to thrive (6) Facial cellulitis Current Visit: Yes Status: Acute Code(s): L03.211 - Cellulitis of face (7) Severe manic bipolar 1 disorder with psychotic behavior Current Visit: Yes Status: Acute Code(s): F31.2 - Bipolar disorder, current episode manic severe with psychotic features (8) Syncope and collapse Current Visit: Yes Status: Acute Code(s): R55 - Syncope and collapse - Assessment / Plan Additional Assessment/Plan Details: I encouraged the patient to take anti-HTN medications, and though she expresses understanding of having had a stroke, does not seem to be interested in taking medications to prevent another one. I asked her to try and then she said she would at least try to take them. has been refusing lab draws not aggressive in behaviors awaiting placement. I am not able to assess cholesterol status, with cognitive impairments known to occur on statin, I think the risk is too great to start a medication we cannot measure affects on liver enzymes, etc., and though patient seems to be making poor choices by refusing medications, she seems to be making them with informed consent. It is possible her capacity for medical decision making may wax and wane, but cannot answer the competency question as this is a legal question, not a medical question. family pursuing guardianship is my understanding. no other medical changes to plan today.
[2018-11-11] MEDS: QUEtiapine Tab 100 MG TAB PO SCH (20:35)
[2018-11-12] MEDS: IPRATROPIUM/ALBUTEROL SULFATE 3 ML NEB NEB SCH ×2 (07:00→13:56)
--- NOTE | 2018-11-12 13:03 | PDOC(PROG) ---
Date of Service: 11/12/18 Time of Service: 13:00 Interval History: Seen and examined earlier today. No complaints. No chest pain and no shortness of breath. No nausea or vomiting. Very disengaged from her home health care at this point. Drinks Dr. Zarate all day despite diabetes. Not participating in therapy. Still refusing medications for blood pressure at times. No described violent behaviors or aggressive behaviors in review of nursing notes and discussion with nurses. Objective : Data - Labs CBC and BMP: 11/05/18 04:15 11/05/18 04:15 Objective : Exam - General General Appearance: No Acute Distress, Cooperative Additional General Exam Details: Vital Signs - Last Taken Temperature 97.2 F 11/12/18 03:25 Pulse Rate 88 11/12/18 03:25 Respiratory Rate 20 11/12/18 03:25 Blood Pressure 132/80 11/12/18 03:25 Pulse Ox 91 11/12/18 03:25 Patient has been cooperative with examination - Eye Eye Exam: No Scleral Icterus - ENT ENT Exam: Mucous Membranes Moist - Neck Neck Exam: JVP is not Raised - Respiratory Respiratory Exam: Clear to Auscultation - Bilaterally, Breathing Non Labored - Cardiovascular Cardiovascular Exam: RRR, No Murmur, No Clicks, No Gallops, No Rubs, No JVD - GI/Abdominal GI/Abdominal Exam: Normal Bowel Sounds, Non Tender, Non Distended, Soft - Extremities Extremities Exam: No Clubbing Present, No Edema Present, No Cyanosis Present - Neurological Neurological Exam: Alert, Oriented x 3, No Facial Droop, Speech Intact / Clear, Moves All Extremities Equally Assessment and Plan - Patient Problems (1) CVA (cerebral vascular accident) Current Visit: Yes Status: Acute Code(s): I63.9 - Cerebral infarction, unspecified Qualifiers: CVA mechanism: occlusion Precerebral and cerebral artery: unspecified cerebral artery Qualified Code(s): I63.50 - Cerebral infarction due to unspecified occlusion or stenosis of unspecified cerebral artery (2) COPD (chronic obstructive pulmonary disease) Current Visit: Yes Status: Acute Code(s): J44.9 - Chronic obstructive pulmonary disease, unspecified Qualifiers: COPD type: emphysema Emphysema type: centrilobular Qualified Code(s): J43.2 - Centrilobular emphysema (3) Diabetes mellitus Current Visit: Yes Status: Acute Code(s): E11.9 - Type 2 diabetes mellitus without complications Qualifiers: Diabetes mellitus type: type 2 Diabetes mellitus rat exterminator insulin use: without rat exterminator use Diabetes mellitus complication status: without complication Qualified Code(s): E11.9 - Type 2 diabetes mellitus without complications (4) Hypertension Current Visit: Yes Status: Acute Code(s): I10 - Essential (primary) hypertension Qualifiers: Hypertension type: essential hypertension Qualified Code(s): I10 - Essential (primary) hypertension (5) Failure to thrive Current Visit: Yes Status: Acute Qualifiers: Failure to thrive age range: in adult Qualified Code(s): R62.7 - Adult failure to thrive (6) Facial cellulitis Current Visit: Yes Status: Acute Code(s): L03.211 - Cellulitis of face (7) Severe manic bipolar 1 disorder with psychotic behavior Current Visit: Yes Status: Acute Code(s): F31.2 - Bipolar disorder, current episode manic severe with psychotic features (8) Syncope and collapse Current Visit: Yes Status: Acute Code(s): R55 - Syncope and collapse - Assessment / Plan Additional Assessment/Plan Details: Stroke with left upper extremity weakness. Difficult rehabilitation due to lack of patient participation. No aggressive behaviors. Still awaiting placement. I'm worried about potential cognitive effects of cholesterol medications. Particularly in this patient with sometimes waxing and waning medical decision making capacity and noncompliance.
[2018-11-12] MEDS: Insulin Lispro Flexpen 300 UNIT/3 ML INSULN.PEN SUBCUT SCH ×4 (13:55→22:14)
[2018-11-12] MEDS: ASPIRIN EC 81 MG TABLET PO SCH (13:56)
[2018-11-12] MEDS: CLOPIDOGREL 75 MG TABLET PO SCH (13:56)
[2018-11-12] MEDS: Bacitracin Oint 14.2 gm tube 14 APPLIC/14.2 GM TUBE TOPICAL SCH ×2 (13:56→22:14)
[2018-11-12] MEDS: POTASSIUM CHLORIDE 20 MEQ TAB PO SCH ×2 (13:56→17:06)
[2018-11-12] MEDS: ENALAPRIL 10 MG TABLET PO SCH (13:57)
[2018-11-12] MEDS: NICOTINE 21 MG /DAY PATCH TRANSDERM SCH (13:57)
[2018-11-12] MEDS: QUEtiapine Tab 100 MG TAB PO SCH (22:12)
[2018-11-13] MEDS: IPRATROPIUM/ALBUTEROL SULFATE 3 ML NEB NEB SCH ×5 (06:43→22:51)
[2018-11-13] MEDS: Insulin Lispro Flexpen 300 UNIT/3 ML INSULN.PEN SUBCUT SCH ×2 (09:42→14:45)
--- NOTE | 2018-11-13 11:40 | PDOC(PROG) ---
Date of Service: 11/13/18 Time of Service: 11:45 Interval History: Subjective Patient seems to be down. She is very reserved, however she is cooperative in terms of physical examination. When I asked her about why she is refusing her medication she said because she is allergic to Tylenol. I tried to explain to her several times that whats prescribed is aspirin and Plavix as a blood thinner she keeps repeating the same thing again and again. After a while though she accepted to take the medication. I did ask her about why she is refusing physical therapy no clear answer but then she said she will do it. Objective : Data - Labs CBC and BMP: 11/05/18 04:15 11/05/18 04:15 Objective : Exam - General General Appearance: No Acute Distress, Cooperative - Head Head Exam: Normal Inspection - Eye Eye Exam: Normal Appearance - ENT ENT Exam: Normal Exam - Neck Neck Exam: Normal Inspection - Respiratory Respiratory Exam: Clear to Auscultation - Bilaterally - Cardiovascular Cardiovascular Exam: RRR - GI/Abdominal GI/Abdominal Exam: Normal Bowel Sounds, Non Tender, Non Distended, Soft, No Organomegaly - Rectal Rectal Exam: Deferred - External Exam: Deferred - Extremities Extremities Exam: Normal Inspection - Neurological Neurological Exam: Alert, CN II-XII Intact, No Facial Droop, Speech Intact / Clear Additional Neurological Exam Details: Weakness on the left side seems more to be ataxia. - Integumentary Additional Integumentary Exam Details: Perioral redness noted Assessment and Plan - Patient Problems (1) CVA (cerebral vascular accident) Current Visit: Yes Status: Acute Comment: Her participation in PT and OT seemed to be intermittent most of the time she is refusing. after I talked to her she seemed to be acceptable to do it this afternoon. She said she will take the aspirin. Placement is an issue if she does not participate in PT and OT. Code(s): I63.9 - Cerebral infarction, unspecified Qualifiers: CVA mechanism: occlusion Precerebral and cerebral artery: unspecified cerebral artery Qualified Code(s): I63.50 - Cerebral infarction due to unspecified occlusion or stenosis of unspecified cerebral artery (2) COPD (chronic obstructive pulmonary disease) Current Visit: Yes Status: Acute Comment: She suppose to be on oxygen but she refuses to wear it most of the time. Code(s): J44.9 - Chronic obstructive pulmonary disease, unspecified Qualifiers: COPD type: emphysema Emphysema type: centrilobular Qualified Code(s): J43.2 - Centrilobular emphysema (3) Diabetes mellitus Current Visit: Yes Status: Acute Comment: Seems to be reasonable with only with no coverage. We'll DC the sliding scale as she is not needing it. Will change her blood sugar checks to once a day. Code(s): E11.9 - Type 2 diabetes mellitus without complications Qualifiers: Diabetes mellitus type: type 2 Diabetes mellitus fpc insulin use: without fpc use Diabetes mellitus complication status: without complication Qualified Code(s): E11.9 - Type 2 diabetes mellitus without complications (4) Hypertension Current Visit: Yes Status: Acute Comment: Continue enalapril if she accept to take it. Code(s): I10 - Essential (primary) hypertension Qualifiers: Hypertension type: essential hypertension Qualified Code(s): I10 - Essential (primary) hypertension (5) Facial cellulitis Current Visit: Yes Status: Acute Comment: This was treated. Code(s): L03.211 - Cellulitis of face (6) Severe manic bipolar 1 disorder with psychotic behavior Current Visit: Yes Status: Acute Comment: Continue Seroquel Code(s): F31.2 - Bipolar disorder, current episode manic severe with psychotic features
[2018-11-13] MEDS: ASPIRIN EC 81 MG TABLET PO SCH ×2 (14:20→20:34)
[2018-11-13] MEDS: NICOTINE 21 MG /DAY PATCH TRANSDERM SCH (14:21)
[2018-11-13] MEDS: Bacitracin Oint 14.2 gm tube 14 APPLIC/14.2 GM TUBE TOPICAL SCH ×2 (14:21→21:51)
[2018-11-13] MEDS: CLOPIDOGREL 75 MG TABLET PO SCH (14:21)
[2018-11-13] MEDS: ENALAPRIL 10 MG TABLET PO SCH (14:21)
[2018-11-13] MEDS: POTASSIUM CHLORIDE 20 MEQ TAB PO SCH (14:45)
--- NOTE | 2018-11-13 16:49 | OT.PROG ---
Progress Note Progress Note: S: pt was not real verbal this afternoon. She did ask if we had seen her daughter. O: pt was seen in her room and assisted PT with transfer downstairs. She completed yellow putty, BUE cane activity x15 to increase overall function of L UE. She also received proprioceptive input to wrist and elbow. PT returned her to her room. A: pt participated about as well as she can. She still does not have a lot of control with her L hand/arm. P: Continue per POC.
--- NOTE | 2018-11-13 17:12 | PT.PROG ---
Progress Note Progress Note: S. Patient agreed to go to the therapy gym, however did not want to do much exercise. O. Patient ambulated 10 feet to the wheelchair and was wheeled to the therapy gym where she had heat to her back and performed, heel slides quad sets and ankle pumps all x 10. Patient then ambulated 15 feet to the wheelchair and was returned to her room and ambulated 15 feet back to her chair where she was left with alarm and call light. A. Patient tolerated ambulation fair, she continues to have left sided weakness, She did not ambulate much distance wolff, she would continue to benefit from skilled therapy to increase strength, endurance and safety at this time. P. Continue POC.
[2018-11-13] MEDS: QUEtiapine Tab 100 MG TAB PO SCH (20:34)
[2018-11-14] MEDS: IPRATROPIUM/ALBUTEROL SULFATE 3 ML NEB NEB SCH ×2 (02:48→06:43)
[2018-11-14] MEDS: ASPIRIN EC 81 MG TABLET PO SCH ×2 (11:04→20:26)
[2018-11-14] MEDS: Bacitracin Oint 14.2 gm tube 14 APPLIC/14.2 GM TUBE TOPICAL SCH ×2 (11:04→20:32)
[2018-11-14] MEDS: NICOTINE 21 MG /DAY PATCH TRANSDERM SCH (11:04)
[2018-11-14] MEDS: CLOPIDOGREL 75 MG TABLET PO SCH ×2 (11:04→20:26)
[2018-11-14] MEDS: ENALAPRIL 10 MG TABLET PO SCH ×2 (11:05→20:27)
--- NOTE | 2018-11-14 13:03 | PDOC(PROG) ---
Date of Service: 11/14/18 Time of Service: 13:00 Interval History: Subjective Patient was still refusing to do the paperwork for her to go to the [facility] for skilled rehabilitation. After I talked to her she said she will do it. She did take her aspirin last night. She is working with PT now. Objective : Data - Labs CBC and BMP: 11/05/18 04:15 11/05/18 04:15 Objective : Exam - General General Appearance: No Acute Distress, Cooperative - Head Head Exam: Normal Inspection - Eye Eye Exam: Normal Appearance - ENT ENT Exam: Normal Exam - Neck Neck Exam: Normal Inspection - Respiratory Respiratory Exam: Clear to Auscultation - Bilaterally - Cardiovascular Cardiovascular Exam: RRR - GI/Abdominal GI/Abdominal Exam: Normal Bowel Sounds, Non Tender, Non Distended, Soft - Rectal Rectal Exam: Deferred - External Exam: Deferred Exam: Deferred - Extremities Extremities Exam: Normal Inspection - Back Back Exam: Normal Inspection - Neurological Neurological Exam: Alert, CN II-XII Intact, No Facial Droop Additional Neurological Exam Details: Left sided ataxia noted more in the left hand. - Psychiatric Psychiatric Exam: Normal Affect Assessment and Plan - Patient Problems (1) CVA (cerebral vascular accident) Current Visit: Yes Status: Acute Comment: Continue PT and OT. She seems to be doing more than before. Continue aspirin. We moved the Plavix and enalapril to night dosage as she seemed to be more cooperative taking the medication at night. Code(s): I63.9 - Cerebral infarction, unspecified Qualifiers: CVA mechanism: occlusion Precerebral and cerebral artery: unspecified cerebral artery Qualified Code(s): I63.50 - Cerebral infarction due to unspecified occlusion or stenosis of unspecified cerebral artery (2) COPD (chronic obstructive pulmonary disease) Current Visit: Yes Status: Acute Comment: Continue oxygen Code(s): J44.9 - Chronic obstructive pulmonary disease, unspecified Qualifiers: COPD type: emphysema Emphysema type: centrilobular Qualified Code(s): J43.2 - Centrilobular emphysema (3) Diabetes mellitus Current Visit: Yes Status: Acute Comment: Continue monitoring her blood sugar. 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 use Diabetes mellitus complication status: without com plication Qualified Code(s): E11.9 - Type 2 diabetes mellitus without com plications (4) Hypertension Current Visit: Yes Status: Acute Comment: We'll change the timing of enalapril to night dosage hopefully she will take it tonight Code(s): I10 - Essential (primary) hypertension Qualifiers: Hypertension type: essential hypertension Qualified Code(s): I10 - Essential (primary) hypertension (5) Facial cellulitis Current Visit: Yes Status: Acute Comment: This is resolved Code(s): L03.211 - Cellulitis of face (6) Severe manic bipolar 1 disorder with psychotic behavior Current Visit: Yes Status: Acute Comment: We'll cut back on the Seroquel as this maybe making her more sleepy. Code(s): F31.2 - Bipolar disorder, current episode manic severe with psychotic features
--- NOTE | 2018-11-14 17:51 | PT.PROG ---
Progress Note Progress Note: S. Patient stated she would do exercise in her room however did not want to go to the therapy gym. O. Patient performed seated long arc quads, marches, pillow squeezes, clam shells, resisted knee flexion all x 10 bilaterally. sit to stands x 5. Patient ambulated 5 feet to the chair and 5 feet back to the xavi chair and was left with alarm and call light. A. Patient tolerated therapy fair, she continues to struggle with weakness and fatigues quickly. She would continue to benefit from skilled therapy to increase strength, endurance and safety. P. Continue POC.
[2018-11-14] MEDS ORDERED: QUEtiapine Tab 100 MG TAB PO SCH (21:00)
[2018-11-15] MEDS: IPRATROPIUM/ALBUTEROL SULFATE 3 ML NEB NEB SCH ×2 (01:21→03:24)
[2018-11-15] MEDS: Bacitracin Oint 14.2 gm tube 14 APPLIC/14.2 GM TUBE TOPICAL SCH (09:57)
[2018-11-15] MEDS: NICOTINE 21 MG /DAY PATCH TRANSDERM SCH ×2 (09:57→10:00)
--- NOTE | 2018-11-15 15:04 | OT AM DAY ---
Diagnosis : Weakness AM - Occupational Therapy S: Earlier today the patient did not want to participate with therapy. She finally agreed to complete her upper extremity strengthening and coordination exercises after a lot of encouragement. O: The patient performed therapeutic exercises and functional activities including yellow theraband resisted rows, biceps curls, shoulder extension. She then completed some clothespin activities; she had a lot of difficulty with pinching the clothespin. The clothespin flew off of the container at times and the patient had a lot of difficulty pinching them back onto the container. She completed reaching activities in various motions in front of her. The patient had some difficulty, especially reaching across her body and reaching above 90 degrees. She had difficulty with coordination and placing the cone back on a stack of cones. The patient continually moved herself to the left side of the chair. She did keep a neutral sitting position for 30 seconds-1 minute at a time and then always went back to leaning to the left. The patient had some family members and some staff come in to talk to her about some paperwork and this distracted the patient and she did not want to do anymore therapy. A: The patient is still demonstrating pretty significant proprioceptive difficulties as well as coordination difficulties with her left upper extremity. P: Continue seeing patient BID during the week and one time per day over the weekend for upper extremity strengthening, ADLs, and overall functional mobility. MTDD
--- NOTE | 2018-11-15 15:46 | PDOC(PROG) ---
Date of Service: 11/15/18 Time of Service: 15:45 Interval History: Subjective Patient was sitting in the chair. Still she has weakness in the left side. She is more cooperative though working with physical therapy. She did take all her medication last night. Objective : Data - Labs CBC and BMP: 11/05/18 04:15 11/05/18 04:15 Objective : Exam - General General Appearance: No Acute Distress, Cooperative - Head Head Exam: Normal Inspection - Eye Eye Exam: Normal Appearance - ENT Additonal ENT Exam Details: Perioral redness still present - Neck Neck Exam: Normal Inspection - Respiratory Respiratory Exam: Clear to Auscultation - Bilaterally - Cardiovascular Cardiovascular Exam: RRR - GI/Abdominal GI/Abdominal Exam: Normal Bowel Sounds, Non Tender, Non Distended, No Organomegaly - Rectal Rectal Exam: Deferred - External Exam: Deferred Exam: Deferred - Extremities Extremities Exam: Normal Inspection - Back Back Exam: Normal Inspection - Neurological Additional Neurological Exam Details: Still left-sided incoordination present. Still some weakness present on the left side. Specially in the left arm. - Psychiatric Psychiatric Exam: Flat Affect - Integumentary Integumentary Exam: Normal Color Assessment and Plan - Patient Problems (1) CVA (cerebral vascular accident) Current Visit: Yes Status: Acute Comment: Continue PT and OT. She is accepting to take her aspirin and Plavix and lisinopril continue. Code(s): I63.9 - Cerebral infarction, unspecified Qualifiers: CVA mechanism: occlusion Precerebral and cerebral artery: unspecified cerebral artery Qualified Code(s): I63.50 - Cerebral infarction due to unspecified occlusion or stenosis of unspecified cerebral artery (2) COPD (chronic obstructive pulmonary disease) Current Visit: Yes Status: Acute Comment: Continue oxygen Code(s): J44.9 - Chronic obstructive pulmonary disease, unspecified Qualifiers: COPD type: emphysema Emphysema type: centrilobular Qualified Code(s): J43.2 - Centrilobular emphysema (3) Diabetes mellitus Current Visit: Yes Status: Acute Comment: Sliding scale was discontinued because she did not need it. Checking her blood sugar daily. 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 use Diabetes mellitus complication status: without complication Qualified Code(s): E11.9 - Type 2 diabetes mellitus without complications (4) Hypertension Current Visit: Yes Status: Acute Comment: Continuous lisinopril Code(s): I10 - Essential (primary) hypertension Qualifiers: Hypertension type: essential hypertension Qualified Code(s): I10 - Essential (primary) hypertension (5) Facial cellulitis Current Visit: Yes Status: Acute Comment: This is resolved Code(s): L03.211 - Cellulitis of face (6) Severe manic bipolar 1 disorder with psychotic behavior Current Visit: Yes Status: Acute Comment: We were able to get the Abilify so I think we'll switch to Abilify instead of the Seroquel. Maybe that would lessen the sleepiness that she is having during the daytime. Code(s): F31.2 - Bipolar disorder, current episode manic severe with psychotic features
--- NOTE | 2018-11-15 16:02 | PT PM DAY ---
Diagnosis : Weakness PM - Physical Therapy S: The patient reports no new changes. O: The patient was brought to the therapy department today by OT via wheelchair. She participated in some pain relief modalities, light exercise, sit to stands, and ambulation with a walker and assist of one. A: The patient needs a lot of verbal encouragement to do any kind of mobility activities at this point. We need to get her a little more motivated to be a little more active with some of her self care and ADLs. P: Continue seeing patient BID during the week and one time per day over the weekend for transfers, ambulation, and range of motion/strengthening exercises. ALEXA
--- NOTE | 2018-11-15 16:23 | PT.PROG ---
Progress Note Progress Note: S: pt reports she is doing fair O: pt instructed in transfers in her room with CGA x 1 and walker. pt requires minimal cues for L hand while ambulating with walker . pt instructed to ambulate approx 30 feet to restroom with CGA x 1 and walker. ind w toileting. pt instructed to ambulate approx 40 feet with CGAx 1 with walker. pt transported back to room and left in room with proper alarms in place. A: pt tolerated therapy well, requires minimal cues for L hand placement on walker . continues to benefit from skilled therapy P: cont per POC.
[2018-11-15 19:24] VITALS: RESP 20
[2018-11-15 19:28] VITALS: TEMP 97.6
[2018-11-15] MEDS: ASPIRIN EC 81 MG TABLET PO SCH (20:50)
[2018-11-15] MEDS: CLOPIDOGREL 75 MG TABLET PO SCH (20:50)
[2018-11-15] MEDS: ENALAPRIL 10 MG TABLET PO SCH (20:50)
[2018-11-15] MEDS ORDERED: ARIPIPRAZOLE 2 MG PO SCH (21:00)
[2018-11-16] MEDS: IPRATROPIUM/ALBUTEROL SULFATE 3 ML NEB NEB SCH ×3 (01:12→12:57)
[2018-11-16] MEDS: Bacitracin Oint 14.2 gm tube 14 APPLIC/14.2 GM TUBE TOPICAL SCH ×2 (04:57→11:50)
[2018-11-16] MEDS: NICOTINE 21 MG /DAY PATCH TRANSDERM SCH (11:51)
--- NOTE | 2018-11-16 11:57 | PT.PROG ---
Progress Note Progress Note: S. Patient stated she would like to go outside this morning. O. Patient ambulated 80 feet to the wheelchair and was wheeled outside where she performed seated long arc quads, heel toe raises, and marches all x 10 bilaterally, Patient then ambulated 90 feet to the wheelchair and was returned to her room where she transferred from the wheelchair to her chair and was left with alarm and call light. A. Patient tolerated ambulation fair, she continues to require mod assist with transfers and ambulation, she would continue to benefit from skilled therapy to increase strength, endurance and safety. P. Continue POC.
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
[2018-11-16 14:30] VITALS: BP 128/67; O2SAT 88
== END 2018-11-16 14:52 | disposition swing bed (61) | DRG 65 ==
LOC: ER 16:18 → MED/SURG 20:50
PROVIDERS: ADMIT Family Medicine; ATTEND Family Medicine